=== PATIENT | female | born 1945 | race Caucasian/White ===

== ENCOUNTER 2020-12-29 09:16 | Outpatient (REF) | payer MEDICARE, OTHER, SELFPAY ==
--- NOTE | 2020-12-29 15:54 | MHC.AU.ANR ---
Adult Audiological Evaluation Date of Visit: 12/29/20 Reason for Appointment: Audiological evaluation due to concern for decreased hearing. Ms. Kitchen reports difficulties hearing the TV and her cell phone and feels she doesn't hear as clearly as she used to. She notes that she frequently has eczema and itching in her ear canals. Does patient feel they have a hearing loss?: Yes If Yes, Which Ear?: Both Ears When Was Hearing Difficulty First Noticed?: Gradually, but worse over the past few months Has hearing been tested previously?: Yes Previous Hearing Test Results: [facility] [place], 05/20/2015- Moderate to severe high-frequency SNHL in the right ear, moderate high-frequency SNHL in the left ear. Hearing Handicap Inventory: HHIE SCORE: 12 Based on HHIE score, patient has: Mild to moderate perceived hearing handicap Medical History: Medical History: Cancer, High Blood Pressure, Mumps Medical History (Other): Hernia repair 1996, hysterectomy 1997 Medication List: Topical cream to treat eczema in ears. Otoscopy: Right Ear: Mostly occluding cerumen, unable to view TM Left Ear: Non-occluding cerumen, able to view TM. Tympanometry: Tympanometry performed due to: To determine if cerumen blockage is fully occluding canal(s) Right Ear: Hypercompliant Middle Ear System (Type Ad) Left Ear: Normal Middle Ear System (Type A) Hearing Evaluation: Transducer(s) Used: Circumaural Headphones Method: Conventional Audiometry Stimuli Used: Pure Tones Right Ear: Description of Hearing: Normal hearing from 250-1000 Hz, steeply sloping to a mild to profound sensorineural hearing loss from 4264-1579 Hz. Left Ear: Description of Hearing: Normal hearing from 250-1000 Hz, steeply sloping to a mild to severe sensorineural hearing loss from 4023-6874 Hz. Speech Recognition Threshold (SRT): Method Used: Monitored Live Voice Stimuli Used: Spondee Words Right Ear: 25 dBHL Left Ear: 15 dBHL Word Discrimination: Method: Recorded Lists Word Lists Used: NU-6 Right Ear: 96% at 65 dBHL Left Ear: 96% at 65 dBHL Recommendations: Audiological re-evaluation in one year. Trial with amplification is recommended. Patient does not feel they are ready for amplification at this time. Referral to Ear, Nose, and Throat is recommended due to asymmetric thresholds. Follow up with a physician or use of earwax removal drops to clear ears. Diagnosis: Primary Diagnosis: H90.3 Bilateral Sensorineural Hearing Loss Secondary Diagnosis: H61.23 Impacted Cerumen, Bilateral Services Performed: Services Performed: Comprehensive Audiological Evaluation (CPT 20850) Tympanometry (CPT 38505) Signature: Provider: Janie Connolly, CCC-A
== END 2020-12-29 09:17 | disposition home or self-care (01) ==
LOC: HO.SH 09:16
PROVIDERS: Visit Provider Internal Medicine
DX: H90.3 Sensorineural hearing loss, bilateral (principal); H61.23 Impacted cerumen, bilateral
CPT/HCPCS: 92557; 92567

== ENCOUNTER 2021-02-17 08:16 | Outpatient (REF) | payer MEDICARE, OTHER, SELFPAY ==
[2021-02-17 11:07] LABS: Hemoglobin 14.3 g/dl (12.0-16.0); Mean Corpuscular HGB Conc 31.8 g/dl (31.0-35.0); Mean Corpuscular Hemoglobin 29.9 pg (27.0-33.0); Mean Corpuscular Volume 94.1 fL (80-98); Platelet Count 326 X10*3/uL (160-400); Red Blood Count 4.78 X10*6/uL (4.20-5.50); Red Cell Distribution Width 13.9 % (11.0-16.0); White Blood Count 9.5 X10*3/uL (4.8-10.8)
[2021-02-17 11:14] LABS: Estimated Average Glucose 128 mg/dL; Hemoglobin A1c % 6.1 %
[2021-02-17 11:47] LABS: Alanine Aminotransferase 12 U/L (0-31); Albumin Level 4.1 g/dL (3.5-5.0); Alkaline Phosphatase 83 U/L (39-117); Anion Gap 14 (12-20); Aspartate Amino Transferase 17 U/L (5-31); Bilirubin Total 0.7 mg/dL (0.0-1.0); Blood Urea Nitrogen 16 mg/dL (9-16); Calcium 9.4 mg/dL (8.4-10.2); Carbon Dioxide 30 mmol/L (22-29); Chloride 104 mmol/L (96-108); Cholesterol 242 mg/dL; Estimated Glomerular Filt Rate 58; Glucose Fasting 114 mg/dL (60-99); HDL Cholesterol 45 mg/dL; Iron 73 mcg/dL (30-160); LDL Cholesterol Calculated 172 mg/dl; Percent Iron Saturation 23 % (15-50); Potassium 4.5 mmol/L (3.3-5.1); Sodium 143 mmol/L (135-145); Total Iron Binding Capacity 312 mcg/dL (228-428); Total Protein 7.2 g/dL (6.5-8.0); Triglycerides 126 mg/dL; Unsaturated Iron Binding 239 ug/dL
[2021-02-17 12:01] LABS: Ferritin 125 ng/mL (10-250)
== END 2021-02-17 08:17 | disposition home or self-care (01) ==
LOC: HO.MANLDS 08:16
PROVIDERS: PCP Internal Medicine; Visit Provider Physician Assistant
DX: I10 Essential (primary) hypertension (principal); R73.01 Impaired fasting glucose; E78.2 Mixed hyperlipidemia
CPT/HCPCS: 36415; 80053; 80061; 82728; 83036; 83540; 85027

== ENCOUNTER 2021-11-12 11:21 | Outpatient (REF) | payer MEDICARE, OTHER, SELFPAY ==
[2021-11-12 13:31] LABS: MANUAL DIFF FLAG NO
[2021-11-12 13:35] LABS: Basophils Percent Auto 0.3 % (0-2); Eosinophils Absolute Auto 0.1 X10*3/uL (0.0-0.4); Eosinophils Percent Auto 1.3 % (0-4); Hematocrit 43.8 % (37.0-47.0); Hemoglobin 13.9 g/dl (12.0-16.0); Imm Gran Abs Auto 0.04 X10*3/uL (0.00-0.03); Imm Gran Pct Auto 0.4 % (0.0-0.4); Lymphocytes Percent Auto 30.4 % (20-40); Mean Corpuscular HGB Conc 31.7 g/dl (31.0-35.0); Mean Corpuscular Volume 94.6 fL (80.0-98.0); Mean Platelet Volume 10.5 fL (9.4-12.3); Monocytes Absolute Auto 0.6 X10*3/uL (0.1-1.2); Monocytes Percent Auto 6.5 % (2-11); Neutrophils Percent Auto 61.1 % (45-73); Platelet Count 349 X10*3/uL (160-400); Red Blood Count 4.63 X10*6/uL (4.20-5.50); Red Cell Distribution Width 13.6 % (11.0-16.0); White Blood Count 9.8 X10*3/uL (4.8-10.8)
[2021-11-12 13:49] LABS: Alanine Aminotransferase 23 U/L (0-31); Albumin Level 4.2 g/dL (3.5-5.0); Alkaline Phosphatase 75 U/L (39-117); Anion Gap 10 (12-20); Aspartate Amino Transferase 23 U/L (5-31); Bilirubin Total 0.9 mg/dL (0.0-1.0); Blood Urea Nitrogen 16 mg/dL (9-16); Calcium 9.6 mg/dL (8.4-10.2); Carbon Dioxide 31 mmol/L (22-29); Chloride 104 mmol/L (96-108); Estimated Glomerular Filt Rate > 60; Glucose Random 110 mg/dL (60-115); Potassium 4.4 mmol/L (3.3-5.1); Sodium 141 mmol/L (135-145); Total Protein 7.3 g/dL (6.5-8.0)
[2021-11-12 13:53] LABS: Estimated Average Glucose 128 mg/dL; Hemoglobin A1c % 6.1 %
[2021-11-12 14:11] LABS: Thyroid Stimulating Hormone 1.79 uIU/mL (0.32-4.0); Vitamin D 25-OH Total 23.8 ng/mL (>30)
[2021-11-12 14:12] LABS: Erythrocyte Sedimentation Rate 23 MM/HR (0-20)
== END 2021-11-12 11:22 | disposition home or self-care (01) ==
LOC: HO.MANLDS 11:21
PROVIDERS: PCP Internal Medicine; Visit Provider Internal Medicine
DX: M85.80 Other specified disorders of bone density and structure, unspecified site (principal); R73.01 Impaired fasting glucose; R03.0 Elevated blood-pressure reading, without diagnosis of hypertension
CPT/HCPCS: 36415; 80053; 82306; 83036; 84443; 85025; 85652

== ENCOUNTER → 2022-07-01 09:14 | Outpatient (REF) | payer MEDICARE, OTHER, SELFPAY ==
--- NOTE | 2022-07-01 09:20 | CA_ITS ---
Transthoracic Echocardiogram Patient (Last, First, Middle): Ayesha Kitchen L Gender: Female Date of : 1945 Age: 77 Procedure Date: 07/01/2022 Procedure Type: Transthoracic Echocardiogram Location: OP Height: 154.94 cm Weight: 102.06 kg BSA: 1.99 m2 Heart Rate: 68 bpm BP: 148 / 72 mmHg Professor Of Criminal Justice: SB Referring MD: Jeremías Upton MD Symptoms: DYSPNEA ON EXERTION Study Quality: Adequate w contrast ECG Rhythm: Sinus Conclusions: - Normal left ventricular size and systolic function. There is mildly increased left ventricular wall thickness. The visually estimated ejection fraction is between 60-65%. - Elevated filling pressures. - There is severe septal asymmetric hypertrophy. - Normal right ventricular cavity size. There is borderline right ventricular systolic function. - There is mild dilatation of the ascending aorta measuring 3.70 cm. Findings Procedure Information Contrast agent, definity, is being given per protocol without apparent complications. Left Ventricle Normal left ventricular size and systolic function. There is mildly increased left ventricular wall thickness. The visually estimated ejection fraction is between 60-65%. There is no evidence of regional wall motion abnormalities. Abnormal diastolic function is noted. Spectral Doppler is indicative of an impaired relaxation filling pattern. Elevated filling pressures. There is severe septal asymmetric hypertrophy. Right Ventricle Normal right ventricular cavity size. There is borderline right ventricular systolic function. Atria The left atrium is normal in size. Aortic Valve Normal aortic valve structure and function. There is no aortic valve stenosis. There is no aortic valve regurgitation. Mitral Valve Normal mitral valve structure and function. There is no mitral valve regurgitation. There is no mitral valve stenosis. Pulmonic Valve The pulmonic valve is likely normal. Tricuspid Valve Normal tricuspid valve structure and function. There is no tricuspid valve regurgitation. Normal right atrial pressure. There is no evidence of pulmonary hypertension. Great Vessels There is mild dilatation of the ascending aorta measuring 3.70 cm. The visualized portions of the pulmonary artery and branches are normal. Venous The inferior vena cava is normal in size and collapses greater than 50% with inspiration. Pericardium/Pleural Prominent epicardial adipose tissue noted. There is no evidence of pericardial effusion. Prior Study Comparison Changes noted compared to prior study. Mild dilation of ascending aorta, severe septal hypertrophy, elevated filling pressures. Measurements 2D Linear Measurements IVSd: 1.80 0.6-0.9/0.6-1.0 cm LVIDd: 3.47 3.9-5.3/4.2-5.9 cm LVIDd Index: 1.74 2.4-3.2/2.2-3.1 cm/m2 LVIDs: 2.50 2.0-3.6 cm LVPWd: 0.91 0.7-1.1 cm LA Diam: 3.60 2.7-3.8/3.0-4.0 cm LAIDs Index: 1.81 1.5-2.3 cm/m2 LV Mass: 202.26 67-162/88-224 g LV Mass Index: 101.64 43-95/49-115 g/m2 LVOT Diam: 2.10 3.0+(-)1.3 cm 2D Systolic Function EF 4C: 67.40 >55% EF 2C: 79.10 >55% EF BiP: 72.90 >55% Mitral Valve MV Pk E: 0.60 MV PK A: 0.82 MV Decel Time: 167.00 E/A: 0.70 E'Lateral: 5.22 E'Medial: 2.94 E/E' Med: 20.50 E/E' Lat: 11.60 PHT: 49.00 MVA PHT: 4.49 Decel [place]: 3.62 Aortic Valve AoV Pk Js: 1.22 AoV Pk Grad: 6.00 PAMELA: 2.80 LVOT LVOT Pk Js: 0.99 LVOT Mn Js: 0.74 LVOT VTI: 0.22 LVOT Pk Grad: 4.00 LVOT Mn Grad: 2.00 LVOT Diam: 2.10 LVOT Area: 3.46 Diastolic Function MV Pk E: 0.60 MV Pk A: 0.82 E/A: 0.70 E'Medial: 2.94 E/E' Med: 20.50 E' Laterial: 5.22 E/E' Lat: 11.60 Right Ventricle TAPSE (mm): 15.20 TVS' Js: 9.60 Tricuspid Valve TR Pk Js: 1.95 TR Pk Grad: 15.00 RA Press: 8.00 RVSP: 23.00 Great Vessels Aorta Sinus of Valsalva: 3.20 2.0-3.5 cm Ao Asc: 3.70 2.1-3.4 cm Pulmonary Valve PV Pk Js: 1.20 Peak PV Grad: 6.00 Updated in Other Vendor System with Status of Final Chad Merritt MD electronically signed on 07/03/2022 2:36:30 PM with status of Final
== END ==
LOC: HO.CARD 09:14
PROVIDERS: PCP Internal Medicine; Visit Provider Internal Medicine
DX: R06.09 Other forms of dyspnea (principal)
CPT/HCPCS: 93306; Q9957

== ENCOUNTER → 2022-07-08 10:42 | Outpatient (BNVA) | payer MEDICARE, OTHER, SELFPAY | PROVIDERS: PCP Internal Medicine; Visit Provider Student in an Organized Health Care Education/Training Program | DX: R68.2 Dry mouth, unspecified (principal); R42 Dizziness and giddiness | CPT/HCPCS: 99202 ==

== ENCOUNTER 2022-08-29 10:13 | Outpatient (REF) | payer MEDICARE, OTHER, SELFPAY ==
--- NOTE | ~2022-08-29 | US_ITS ---
EXAMINATION: US EXTRACRANIAL CAROTID DUPLEX, BILATERAL CLINICAL INFORMATION: Dizziness and giddiness COMPARISON: None TECHNIQUE: Real-time ultrasound and Doppler techniques (integrating B-mode 2-D vascular images, Doppler spectral analysis and color-flow Doppler imaging) were utilized to interrogate the extracranial carotid arteries, the vertebral arteries and proximal subclavian arteries bilaterally. The degree of stenosis is determined by criteria similar to NASCET. FINDINGS: Right Side: 1. There is minimal atherosclerotic plaque seen in the bifurcation/proximal ICA region. 2. The common carotid artery PSV proximally is 67.6 cm/s and distally 70.7 cm/s. 3. The proximal internal carotid artery velocities are 56.8 cm/s systolic and 20.4 cm/s diastolic. 4. The proximal external carotid artery PSV is 108 cm/s. 5. The vertebral artery shows antegrade flow. 6. The subclavian artery waveforms are normal. Left Side: 1. There is minimal atherosclerotic plaque seen in the bifurcation/proximal ICA region. 2. The common carotid artery PSV proximally is 81.6 cm/s and distally 76.7 cm/s. 3. The proximal internal carotid artery velocities are 45.1 cm/s systolic and 14.1 cm/s diastolic. 4. The proximal external carotid artery PSV is 91.4 cm/s. 5. The vertebral artery shows antegrade flow. 6. The subclavian artery waveforms are normal. US/US carotid duplex BI IMPRESSION: 1. RIGHT: Minimal, non-hemodynamically significant stenosis of the proximal right internal carotid artery corresponding to a 0-49% stenosis by velocity criteria. 2. LEFT: Minimal, non-hemodynamically significant stenosis of the proximal left internal carotid artery corresponding to a 0-49% stenosis by velocity criteria.
== END 2022-08-29 10:14 | disposition home or self-care (01) ==
LOC: HO.US 10:13
PROVIDERS: Visit Provider Student in an Organized Health Care Education/Training Program
DX: R42 Dizziness and giddiness (principal)
CPT/HCPCS: 93880

== ENCOUNTER → 2022-09-21 14:43 | Outpatient (BNVA) | payer MEDICARE, OTHER, SELFPAY | PROVIDERS: PCP Internal Medicine; Visit Provider Internal Medicine Cardiovascular Disease | DX: R06.09 Other forms of dyspnea (principal); R07.9 Chest pain, unspecified; E78.5 Hyperlipidemia, unspecified | CPT/HCPCS: 93005; 99202 ==

== ENCOUNTER → 2022-09-29 08:33 | Outpatient (REF) | payer MEDICARE, OTHER, SELFPAY ==
--- NOTE | ~2022-09-29 | NM_ITS ---
Myocardial perfusion study Indication: Chest pain to evaluate for myocardial ischemia Technique: The patient was brought in for a Lexiscan perfusion study on 09/29/2022. Patient performed low-level exercise and was injected 0.4 mg of Lexiscan intravenously. Within a minute of injection, 30 mCi of sestamibi was given intravenously. Images were obtained using the SPECT gamma camera interlaced with the gating device. Images were obtained in supine position. Resting perfusion study was performed on 09/30/2022. Patient was administered 30 mCi of sestamibi intravenously at rest. Images were then obtained in supine position. Images were obtained with and without CT attenuation. Total DLP 187 mGy-cm. Images were processed with the software and compared side to side in short axis, horizontal long axis and vertical long axis views. Findings: The stress perfusion study showed non attenuated images show moderate reduced uptake in the distal inferolateral as well as the apical wall of the LV myocardium. Remainder of the LV myocardium is normally perfused. Attenuation corrected images show mildly reduced uptake in the apex of the LV myocardium. The gated study shows normal LV systolic function with calculated LVEF of 72%. LV cavity is normal in size. The gated study shows normal systolic wall thickening and contraction of segments. Resting study shows no change in perfusion pattern compared to stress perfusion study. Gating at rest reveals normal systolic wall motion with ejection fraction at 73%. The findings are consistent with no reversible defect suggestive of ischemia. Fixed apical defect could represent small area of nontransmural infarct of the apex although attenuation related artifact is also likely given normal wall motion. NM/NM schuyler perf SPECT rest & str Impression: 1. Myocardial perfusion imaging study shows no reversible ischemia. Possible small area of nontransmural infarct of the apex cannot be entirely ruled out 2. Gated LVEF is 72% 3. Transient ischemic dilatation not present EKG is nondiagnostic for ischemia
--- NOTE | 2022-09-29 08:38 | CA_ITS ---
Acquisition Time: 2022-09-29 09:19:47 Total Exercise Time: 00:02:00 Test Indications: Dyspnea CP Medications: LOSARTAN PRAVASTATIN TOPIRAMATE Protocol: LEXISCAN Max HR: 102 BPM 70% of Pred: 145 BPM Max BP: 142/080 mmHG Max Work Load: 1.1 METS Pharmacological stress test with Lexiscan injection, while sitting and kicking her legs, without anginal symptoms, without arrythnmia, with normotensive response to injection, with nondiagnostic EKG for ischemia. In recovery she was treated with aminophylline 75mg IVP to reverse Lexiscan. Nuclear images pending. Test reviewed with Dr Ontiveros. Referred By: Chad Merritt Overread By: TEVIN POWELL
[2022-09-29 09:04] LABS: MANUAL DIFF FLAG NO
[2022-09-29 09:14] LABS: Basophils Percent Auto 0.4 % (0-2); Eosinophils Absolute Auto 0.2 X10*3/uL (0.0-0.4); Eosinophils Percent Auto 1.5 % (0-4); Imm Gran Abs Auto 0.07 X10*3/uL (0.00-0.03); Imm Gran Pct Auto 0.7 % (0.0-0.4); Lymphocytes Absolute Auto 2.7 X10*3/uL (1.2-4.9); Lymphocytes Percent Auto 27.5 % (20-40); Mean Corpuscular HGB Conc 31.8 g/dl (31.0-35.0); Mean Corpuscular Hemoglobin 29.7 pg (27.0-33.0); Mean Corpuscular Volume 93.4 fL (80.0-98.0); Mean Platelet Volume 10.2 fL (9.4-12.3); Monocytes Absolute Auto 0.6 X10*3/uL (0.1-1.2); Monocytes Percent Auto 6.1 % (2-11); Neutrophils Absolute Auto 6.3 x10*3/uL (2.0-8.3); Neutrophils Percent Auto 63.8 % (45-73); Platelet Count 332 X10*3/uL (160-400); Red Blood Count 4.71 X10*6/uL (4.20-5.50); Red Cell Distribution Width 13.6 % (11.0-16.0); White Blood Count 9.9 X10*3/uL (4.8-10.8)
[2022-09-29 09:24] LABS: Estimated Average Glucose 131 mg/dL; Hemoglobin A1c % 6.2 %
[2022-09-29 09:53] LABS: Alanine Aminotransferase 18 U/L (0-31); Albumin Level 4.1 g/dL (3.5-5.0); Alkaline Phosphatase 70 U/L (39-117); Anion Gap 11 (12-20); Aspartate Amino Transferase 20 U/L (5-31); Blood Urea Nitrogen 17 mg/dL (9-16); Calcium 9.3 mg/dL (8.4-10.2); Carbon Dioxide 28 mmol/L (22-29); Chloride 105 mmol/L (96-108); Cholesterol 222 mg/dL; Estimated Glomerular Filt Rate 59; Glucose Random 119 mg/dL (60-115); HDL Cholesterol 44 mg/dL; LDL Cholesterol Calculated 152 mg/dl; Potassium 3.9 mmol/L (3.3-5.1); Sodium 140 mmol/L (135-145); Total Protein 7.1 g/dL (6.5-8.0); Triglycerides 130 mg/dL
[2022-09-29 10:13] LABS: Cholesterol 217 mg/dL; HDL Cholesterol 43 mg/dL; LDL Cholesterol Calculated 149 mg/dl; Rheumatoid Factor < 13.0 IU/mL (<15.0); TSH reflex Free T4 1.96 uIU/mL (0.32-4.0); Triglycerides 128 mg/dL
[2022-09-29 10:15] LABS: Erythrocyte Sedimentation Rate 14 MM/HR (0-20)
[2022-09-29 11:06] LABS: Appearance Urine Cloudy; Color Urine Yellow; Glucose Urine UA Negative (Negative); Leukocyte Esterase Urine Large (3+) (Negative); Nitrite Urine Negative (Negative); PH 5.5 (5.0-9.0); UMIC TRIGGER UA YES; Urine Blood Negative (Negative); Urine Ketones Negative (Negative); Urine Protein Trace mg/dL (Neg-Trace)
[2022-09-29 11:09] LABS: Bacteria Urine 2+ (None Seen); Hyaline Casts Urine 0-2 /LPF (0-2); Squamous Epithelial Cell Urine >20 /HPF (0-2); WBC Urine >50 /HPF (0-5)
[2022-09-29 11:48] LABS: Creatinine Urine 200.94 mg/dL; Protein/Creatinine Ratio, Ur 0.11 (<0.2); Total Protein Urine Random 22 mg/dL (<12)
[2022-09-30 17:08] LABS: Complement C3 174 mg/dL (83-193)
[2022-09-30 19:37] LABS: Anti DNA DS Antibody <1 IU/mL; Antibody to SS-A Antigen <1.0 NEG AI (<1.0 NEG); Antibody to SS-B Antigen 1.0 POS AI (<1.0 NEG); SM/Ribonucleoprotein Ab <1.0 NEG AI (<1.0 NEG); Smith Protein <1.0 NEG AI (<1.0 NEG)
[2022-09-30 21:04] LABS: Prot Elec - Albumin 3.9 g/dL (3.8-4.8); Prot Elec - Alpha1 0.3 g/dL (0.2-0.3); Prot Elec - Alpha2 0.8 g/dL (0.5-0.9); Prot Elec - Beta 1 0.5 g/dL (0.4-0.6); Prot Elec - Beta 2 0.5 g/dL (0.2-0.5); Prot Elec - Total Protein 6.9 g/dL (6.1-8.1)
[2022-10-02 14:04] LABS: Anti Nuclear Antibody Screen NEGATIVE (NEGATIVE)
[2022-10-02 23:05] LABS: Cyclic Citrullinated Peptide <16 UNITS
[2022-10-03 14:28] LABS: Immunoglobulin G Subclass 1 493 mg/dL (382-929); Immunoglobulin G Subclass 2 376 mg/dL (241-700); Immunoglobulin G Subclass 3 27 mg/dL (22-178); Immunoglobulin G Subclass 4 116.7 mg/dL (4-86); Immunoglobulin G Total 1037 mg/dL (600-1540)
[2022-10-04 14:17] LABS: HLA B27 Negative (Negative)
[2022-10-04 18:07] LABS: IgA 398 mg/dL (70-320); IgG 1214 mg/dL (600-1540); IgM 66 mg/dL (50-300)
[2022-10-05 14:28] LABS: Angiotensin Converting Enzyme 29.9 U/L (9-67)
== END ==
LOC: HO.CARD 08:33
PROVIDERS: Absent Provider Student in an Organized Health Care Education/Training Program; PCP Internal Medicine; Visit Provider Internal Medicine Cardiovascular Disease
DX: R07.9 Chest pain, unspecified (principal); E78.5 Hyperlipidemia, unspecified; R76.8 Other specified abnormal immunological findings in serum; E66.9 Obesity, unspecified; S86.012A Strain of left Achilles tendon, initial encounter; M76.60 Achilles tendinitis, unspecified leg; X58.XXXA Exposure to other specified factors, initial encounter; Y93.9 Activity, unspecified; Y92.9 Unspecified place or not applicable; Y99.9 Unspecified external cause status
CPT/HCPCS: 36415; 78452; 80053; 80061; 81001; 82164; 82595; 82784; 83036; 84156; 84165; 84443; 85025; 85652; 86038; 86039; 86140; 86160; 86200; 86225; 86235; 86334; 86431; 86812; 93017; A9500; J0280; J2785

== ENCOUNTER → 2022-10-19 10:10 | Outpatient (BNVA) | payer MEDICARE, OTHER, SELFPAY | PROVIDERS: PCP Internal Medicine; Referring Provider Internal Medicine; Visit Provider Internal Medicine Cardiovascular Disease | DX: R06.09 Other forms of dyspnea (principal); I10 Essential (primary) hypertension; E78.5 Hyperlipidemia, unspecified | CPT/HCPCS: 99212 ==

== ENCOUNTER → 2022-10-28 09:16 | Outpatient (BNVA) | payer MEDICARE, OTHER, SELFPAY | PROVIDERS: PCP Internal Medicine; Referring Provider Internal Medicine; Visit Provider Internal Medicine Cardiovascular Disease | DX: Z13.89 Encounter for screening for other disorder (principal) ==

== ENCOUNTER → 2022-12-05 12:39 | Outpatient (BNVA) | payer MEDICARE, OTHER, SELFPAY | PROVIDERS: PCP Internal Medicine; Referring Provider Internal Medicine; Visit Provider Internal Medicine Cardiovascular Disease | DX: I10 Essential (primary) hypertension (principal) | CPT/HCPCS: 99212 ==

== ENCOUNTER 2022-12-12 08:39 | Outpatient (REF) | payer MEDICARE, OTHER, SELFPAY ==
[2022-12-12 09:02] LABS: MANUAL DIFF FLAG NO
[2022-12-12 09:58] LABS: Basophils Percent Auto 0.4 % (0-2); Eosinophils Absolute Auto 0.2 X10*3/uL (0.0-0.4); Eosinophils Percent Auto 1.4 % (0-4); Hemoglobin 13.6 g/dl (12.0-16.0); Imm Gran Abs Auto 0.05 X10*3/uL (0.00-0.03); Imm Gran Pct Auto 0.5 % (0.0-0.4); Lymphocytes Absolute Auto 2.9 X10*3/uL (1.2-4.9); Lymphocytes Percent Auto 27.7 % (20-40); Mean Corpuscular HGB Conc 32.4 g/dl (31.0-35.0); Mean Corpuscular Hemoglobin 30.2 pg (27.0-33.0); Mean Corpuscular Volume 93.1 fL (80.0-98.0); Mean Platelet Volume 10.3 fL (9.4-12.3); Monocytes Absolute Auto 0.7 X10*3/uL (0.1-1.2); Monocytes Percent Auto 6.8 % (2-11); Neutrophils Absolute Auto 6.7 x10*3/uL (2.0-8.3); Neutrophils Percent Auto 63.2 % (45-73); Platelet Count 308 X10*3/uL (160-400); Red Blood Count 4.51 X10*6/uL (4.20-5.50); Red Cell Distribution Width 13.6 % (11.0-16.0); White Blood Count 10.6 X10*3/uL (4.8-10.8)
[2022-12-12 10:24] LABS: Alanine Aminotransferase 18 U/L (0-31); Albumin Level 3.9 g/dL (3.5-5.0); Alkaline Phosphatase 77 U/L (39-117); Anion Gap 13 (12-20); Aspartate Amino Transferase 16 U/L (5-31); Bilirubin Total 0.6 mg/dL (0.0-1.0); Blood Urea Nitrogen 21 mg/dL (9-16); Carbon Dioxide 27 mmol/L (22-29); Chloride 107 mmol/L (96-108); Cholesterol 165 mg/dL; Estimated Glomerular Filt Rate 57; Glucose Random 124 mg/dL (60-115); HDL Cholesterol 47 mg/dL; LDL Cholesterol Calculated 103 mg/dl; Potassium 4.5 mmol/L (3.3-5.1); Sodium 142 mmol/L (135-145); Total Protein 6.7 g/dL (6.5-8.0); Triglycerides 76 mg/dL
== END 2022-12-12 08:40 | disposition home or self-care (01) ==
LOC: HO.LAB 08:39
PROVIDERS: PCP Internal Medicine; Visit Provider Internal Medicine
DX: Z00.01 Encounter for general adult medical examination with abnormal findings (principal); Z12.11 Encounter for screening for malignant neoplasm of colon; Z13.6 Encounter for screening for cardiovascular disorders; D50.9 Iron deficiency anemia, unspecified
CPT/HCPCS: 36415; 80053; 80061; 85025

== ENCOUNTER → 2023-02-02 13:04 | Outpatient (BNVA) | payer MEDICARE, OTHER, SELFPAY | PROVIDERS: PCP Internal Medicine; Referring Provider Internal Medicine; Visit Provider Nurse Practitioner Family | DX: I10 Essential (primary) hypertension (principal); E78.5 Hyperlipidemia, unspecified; R06.09 Other forms of dyspnea; Z79.899 Other long term (current) drug therapy | CPT/HCPCS: 99212 ==

== ENCOUNTER 2023-08-09 13:57 | Outpatient (AMB) | payer MEDICARE, OTHER, SELFPAY ==
--- NOTE | 2023-08-09 14:07 | A.OFFVIS_ITS ---
Intake Vital Signs 08/09/23 14:08 Height 5 ft 2 in Weight 220 lb 7.396 oz BMI 40.3 BP 120/80 Blood Pressure Location Lt brachial Position Sitting Pulse 88 Intake Visit Reasons: 6 mth fu (KM) Intake Note: 6 month follow-up with ekg c/o pressure on center of chest Assembly Associate Required: No Allergies pregabalin Allergy (Unknown, Verified 02/02/23 13:07) Unknown Cawqcab-VHI-AgN Reductase Inhibitor [ZSFQDVF-OSE-RSQ REDUCTASE INHIBITOR] Allergy (Unknown, Verified 02/02/23 13:07) ANXIETY, ABD PAIN From PROZAC Allergy (Unknown, Uncoded 02/02/23 13:07) HAD ALL THE SIDE EFFECTS Medication List - Last Reconciled 08/09/23 by Yee Lazaro NP aspirin (Adult Aspirin Regimen) 81 mg PO DAILY atorvastatin 40 mg PO BEDTIME losartan 50 mg PO DAILY metronidazole 0.75% 1 appl topical BID HPI HPI Comments History of Present Illness Details 78-year-old female presents for a follow -up. She reports doing overall well. She reported a bubble feeling in her chest when she arrived which resolved. She denies shortness of breath. She walks about a half mile every day and tolerates it well. [facility] Medical History Dyslipidemia Hypertension Other abnormalities of gait and mobility Sensorineural hearing loss (SNHL), bilateral Xerostomia Surgical History Hx of colonoscopy H/O Achilles tendon repair H/O local excision of skin lesion Hx of hysterectomy History of surgery Hx of hernia repair Hx of cataract extraction Family History Sister Cancer Stroke Diabetes Father Heart disease Hypertension Stroke Brother Heart disease Mother Heart disease Stroke Social History Household Members: None Alcohol intake: current Alcohol intake frequency: holidays/special occasions only Patient Tobacco Use Status: Never used Tobacco Current occupational status: retired 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 [employer] Review of Systems Const Denies chills, Denies fatigue, Denies fever(s), Denies frequent falls, Denies weakness, Denies weight gain and Denies weight loss ENT Denies dizziness Card Denies chest pain, Denies leg edema, Denies lightheadedness, Denies palpitations, Denies dyspnea, Denies dyspnea on exertion, Denies orthopnea and Denies other (loss of consciousness) Resp Denies cough, Denies dyspnea and Denies dyspnea on exertion GI Denies hematochezia and Denies change in stool character Musc Denies abnormal gait, Denies muscle weakness, Denies numbness, Denies radiating pain into limb and Denies tingling Neuro Denies abnormal gait, Denies dizziness, Denies frequent falls, Denies numbness, Denies tingling and Denies weakness Endo Denies fatigue and Denies palpitations Physical Exam Vital Signs: Last Vital Signs Pulse 88 08/09/23 14:08 BP 120/80 08/09/23 14:08 BMI result Body Mass Index 40.3 Const General: healthy appearing and no acute distress Orientation/consciousness: patient oriented x3 HEENT Head: Yes normal to inspection Eyes General: appearance normal, both eyes and all related structures Neck Neck: Yes normal visual inspection Chest Chest palpation & inspection: normal inspection of the chest Resp Effort & Inspection: normal respiratory effort Auscultation: clear to auscultation bilaterally Cardio Jugular venous distension: no JVD Palpation: normal PMI Rate: regular rate Rhythm: regular rhythm Heart sounds: S1 normal heart sound present, S2 normal heart sound present, no click, no gallops, no murmurs and no rubs GI Inspection: Yes normal to inspection Palpation (GI): Soft to palpation Skin General skin exam: no rashes or lesions noted Neuro General: patient oriented x3 Extrem General: Yes normal to inspection Psych Appearance: grossly normal Office Procedures EKG Details: EKG today. Sinus Rhythm with 1st degree AV block. QTC 455ms. No significant changes from last EKG. [id number], Complete Assessment & Plan Assessment & Plan (1) Essential hypertension: Code(s): I10 - Essential (primary) hypertension (2) Chest pain: Code(s): R07.9 - Chest pain, unspecified Plan Report any new or worsening symptoms. EKG today with no significant changes. Continue medications as currently prescribed. Increase activity as tolerated. Heart healthy diet and weight reduction advised. Coding Level of Care Code Est Pt Level 3 (43325) Diagnoses Essential hypertension I10 Chest pain R07.9 CPT Codes EKG - CPT: 44530-[id number], Complete ([id number])
[2023-08-09 14:08] VITALS: BP 120/80; PULSE 88; BMI 40.3
== END 2023-08-09 15:11 | disposition home or self-care (01) ==
PROVIDERS: PCP Internal Medicine; Visit Provider Nurse Practitioner
DX: I10 Essential (primary) hypertension (principal); R07.9 Chest pain, unspecified
CPT/HCPCS: 93010; 99213

== ENCOUNTER → 2023-08-09 13:57 | Outpatient (BNVA) | payer MEDICARE, OTHER, SELFPAY | PROVIDERS: PCP Internal Medicine; Visit Provider Nurse Practitioner | DX: R07.9 Chest pain, unspecified (principal); I10 Essential (primary) hypertension | CPT/HCPCS: 93005; 99212 ==

== ENCOUNTER 2024-01-26 10:55 | Outpatient (REF) | payer MEDICARE, OTHER, SELFPAY ==
[2024-01-26 13:23] LABS: MANUAL DIFF FLAG NO
[2024-01-26 13:34] LABS: Basophils Percent Auto 0.3 % (0-2); Eosinophils Absolute Auto 0.2 X10*3/uL (0.0-0.4); Eosinophils Percent Auto 1.4 % (0-4); Hematocrit 42.7 % (37.0-47.0); Hemoglobin 13.8 g/dl (12.0-16.0); Imm Gran Abs Auto 0.06 X10*3/uL (0.00-0.03); Imm Gran Pct Auto 0.5 % (0.0-0.4); Lymphocytes Absolute Auto 3.3 X10*3/uL (1.2-4.9); Lymphocytes Percent Auto 28.6 % (20-40); Mean Corpuscular HGB Conc 32.3 g/dl (31.0-35.0); Mean Corpuscular Hemoglobin 30.3 pg (27.0-33.0); Mean Corpuscular Volume 93.6 fL (80.0-98.0); Mean Platelet Volume 10.8 fL (9.4-12.3); Monocytes Absolute Auto 0.8 X10*3/uL (0.1-1.2); Monocytes Percent Auto 7.1 % (2-11); Neutrophils Absolute Auto 7.2 x10*3/uL (2.0-8.3); Neutrophils Percent Auto 62.1 % (45-73); Platelet Count 301 X10*3/uL (160-400); Red Blood Count 4.56 X10*6/uL (4.20-5.50); Red Cell Distribution Width 14.1 % (11.0-16.0); White Blood Count 11.6 X10*3/uL (4.8-10.8)
[2024-01-26 13:44] LABS: Estimated Average Glucose 146 mg/dL; Hemoglobin A1c % 6.7 % (<6.0)
[2024-01-26 14:17] LABS: Alanine Aminotransferase 21 U/L (0-31); Albumin Level 4.1 g/dL (3.5-5.0); Alkaline Phosphatase 68 U/L (39-117); Anion Gap 15 (12-20); Aspartate Amino Transferase 21 U/L (5-31); Bilirubin Total 0.9 mg/dL (0.0-1.0); Blood Urea Nitrogen 17 mg/dL (9-16); Calcium 9.4 mg/dL (8.4-10.2); Carbon Dioxide 28 mmol/L (22-29); Chloride 105 mmol/L (96-108); Estimated Glomerular Filt Rate 59; Glucose Random 105 mg/dL (60-115); Potassium 4.1 mmol/L (3.3-5.1); Sodium 144 mmol/L (135-145); Total Protein 7.6 g/dL (6.5-8.0)
[2024-01-26 14:25] LABS: Vitamin B12 606 pg/mL (200-900)
[2024-02-06 20:39] LABS: Estrogen 53 pg/mL
== END 2024-01-26 10:56 | disposition home or self-care (01) ==
LOC: HO.MANLDS 10:55
PROVIDERS: Visit Provider Internal Medicine
DX: E55.9 Vitamin D deficiency, unspecified (principal); R06.09 Other forms of dyspnea; R73.01 Impaired fasting glucose; R53.83 Other fatigue
CPT/HCPCS: 36415; 80053; 82306; 82607; 82672; 83036; 85025

== ENCOUNTER 2024-02-19 09:54 | Outpatient (AMB) | payer MEDICARE, OTHER, SELFPAY ==
[2024-02-19 09:57] VITALS: BP 150/70; PULSE 82; O2SAT 97; BMI 40.0
--- NOTE | 2024-02-19 09:57 | A.OFFVIS_ITS ---
Vital Signs 02/19/24 09:57 Height 5 ft 2 in Weight 218 lb 11.177 oz BMI 40.0 BP 150/70 H Blood Pressure Location Lt brachial Position Sitting Pulse 82 Pulse Source Pulse Oximeter Pulse Oximetry (%) 97 Intake Visit Reasons: 6 mth fu Superintendent Warehouse Required: No Accompanied by: Self / Same As Patient Allergies pregabalin Allergy (Unknown, Verified 02/02/23 13:07) Unknown Dxflrrk-MYD-MyB Reductase Inhibitor [CRBYTQF-KNM-QBV REDUCTASE INHIBITOR] Allergy (Unknown, Verified 02/02/23 13:07) ANXIETY, ABD PAIN From PROZAC Allergy (Unknown, Uncoded 02/02/23 13:07) HAD ALL THE SIDE EFFECTS Medication List - Last Reconciled 02/19/24 by Chad Merritt MD aspirin (Adult Aspirin Regimen) 81 mg PO DAILY atorvastatin 40 mg PO BEDTIME losartan 50 mg PO DAILY metronidazole 0.75% 1 appl topical BID HPI Comments Details: 77-year-old female who is referred to us for chest discomfort. She has background of xerostomia and has been following with rheumatology. It appears she is sent to us for question dysautonomia but discussed with that she does not have any obvious symptoms of dysautonomia at this stage. She is saying that she gets chest discomfort when she exerts and has family history of coronary disease and wanted to have further workup for that. She is denying any significant shortness of breath. She does not have any known lung disease. She has ba ckground of hypertension and hyperlipidemia. She was referred for stress tests where she could not exercise and Lexiscan was performed. This showed apical fixed defect with differentials of infarct versus attenuation artifact. On follow-up she is denying chest discomfort but saying that she is short of breath when she exercises. Blood pressure continues to be elevated. She is currently on losartan 50 mg daily. She also has soft stools happening every hour for 3 weeks. She has not lost weight. She is denying any abdominal discomfort otherwise. No bleeding in stool or urine. She is saying that she has not been able to exercise due to left ankle issues. 02/19/24: She is here for f/u. She has no CP. She has AVITIA. Her blood pressure is elevated. She is endorsing a lot of stress at home.She is saying her 42-year-old son just moved in with her after losing his apartment. She is saying that things have been quite stressful for her at home and she has not been eating right. She is eating more processed foods. [facility] Medical History Dyslipidemia Hypertension Other abnormalities of gait and mobility Sensorineural hearing loss (SNHL), bilateral Xerostomia Surgical History Hx of colonoscopy H/O Achilles tendon repair H/O local excision of skin lesion Hx of hysterectomy History of surgery Hx of hernia repair Hx of cataract extraction Family History Sister Cancer Stroke Diabetes Father Heart disease Hypertension Stroke Brother Heart disease Mother Heart disease Stroke Social History Household Members: None Alcohol intake: current Alcohol intake frequency: holidays/special occasions only Patient Tobacco Use Status: Never used Tobacco Current occupational status: retired 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 [employer] Review of Systems Const Denies chills, Denies fatigue, Denies fever(s), Denies frequent falls, Denies weakness, Denies weight gain and Denies weight loss ENT Denies dizziness Card Denies chest pain, Denies leg edema, Denies lightheadedness, Denies palpitations, Denies dyspnea and Denies dyspnea on exertion Resp Denies cough, Denies dyspnea and Denies dyspnea on exertion GI Denies hematochezia Musc Denies abnormal gait, Denies muscle weakness, Denies numbness, Denies radiating pain into limb and Denies tingling Neuro Denies abnormal gait, Denies dizziness, Denies frequent falls, Denies numbness, Denies tingling and Denies weakness Endo Denies fatigue and Denies palpitations Physical Exam Vital Signs: Last Vital Signs Pulse 82 02/19/24 09:57 BP 150/70 H 02/19/24 09:57 Pulse Ox 97 02/19/24 09:57 BMI result Body Mass Index 40.0 GENERAL APPEARANCE: in no acute distress, pleasant. NECK: no carotid bruit, no jugular venous distention. SKIN: no suspicious lesions, warm and dry. HEART: no murmurs, regular rate and rhythm. LUNGS: clear to auscultation bilaterally. ABDOMEN: soft, nontender. EXTREMITIES: no edema. PERIPHERAL PULSES: equal. NEUROLOGIC: No gross deficits, AAO X 3 Assessment & Plan Assessment & Plan (1) Essential hypertension: Code(s): I10 - Essential (primary) hypertension Category: Medical (2) AVITIA (dyspnea on exertion): Code(s): R06.09 - Other forms of dyspnea Category: Medical Plan 78 female here for f/u. Her BP is elevated. Adding Chlorthalidone 25 mg daily. Low salt diet. If BP not improving then would maximize the Losartan to 100 mg daily. f/u in few months. Medications: New chlorthalidone 25 mg PO DAILY 60 tabs 3RF I10 - Essential (primary) hypertension Coding Level of Care Code Est Pt Level 4 (54714) Diagnoses Essential hypertension I10 AVITIA (dyspnea on exertion) R06.09
== END 2024-02-19 10:49 | disposition home or self-care (01) ==
PROVIDERS: PCP Internal Medicine; Visit Provider Internal Medicine Cardiovascular Disease
DX: I10 Essential (primary) hypertension (principal); R06.09 Other forms of dyspnea
CPT/HCPCS: 99214

== ENCOUNTER → 2024-02-19 09:54 | Outpatient (BNVA) | payer MEDICARE, OTHER, SELFPAY | PROVIDERS: PCP Internal Medicine; Visit Provider Internal Medicine Cardiovascular Disease | DX: R06.09 Other forms of dyspnea (principal); I10 Essential (primary) hypertension | CPT/HCPCS: 99212 ==

== ENCOUNTER 2024-11-19 08:23 | Outpatient (AMB) | payer MEDICARE, OTHER, SELFPAY ==
--- NOTE | 2024-11-19 08:25 | A.OFFVIS_ITS ---
Vital Signs 11/19/24 08:26 Height 5 ft 2 in Weight 228 lb 6.382 oz BMI 41.8 BP 178/80 H Blood Pressure Location Lt brachial Position Sitting Pulse 72 Pulse Source Monitor Intake Visit Reasons: SOB/Dizziness Sheet [employer] Required: No Allergies pregabalin Allergy (Unknown, Verified 11/19/24 08:28) Unknown Tcdxykl-WTX-YwE Reductase Inhibitor [[id number]-NGR-RRT REDUCTASE INHIBITOR] Allergy (Unknown, Verified 11/19/24 08:28) ANXIETY, ABD PAIN From PROZAC Allergy (Unknown, Uncoded 11/19/24 08:28) HAD ALL THE SIDE EFFECTS Medication List - Last Reconciled 11/19/24 by Azeb Franco NP-C aspirin (Adult Aspirin Regimen) 81 mg PO DAILY atorvastatin 40 mg PO BEDTIME chlorthalidone 25 mg PO DAILY losartan 50 mg PO DAILY metronidazole 0.75% 1 appl topical BID HPI HPI SOB/Dizziness: Details: Ayesha is a 79-year-old female with past medical history of hypertension, hyperlipidemia, morbid obesity, chest discomfort with abnormal nuclear stress test who presents for follow-up. Today she reports that she has been having some increasing daytime fatigue. She feels that she can nap at any time during the day. She says she has been under high stress as her adult son now lives with her. He is on disability and not working. She has some shortness of breath with activity which is not new. She describes having vertigo. She will get random pains in her chest region but describes problems with chronic pains in her back and chest. She does not get chest discomfort brought on by walking or stair climbing. No heart palpitations, presyncope, syncope, falls. Blood pressure has been running high. Taking meds as directed. [facility] Medical History Dyslipidemia Hypertension Other abnormalities of gait and mobility Sensorineural hearing loss (SNHL), bilateral Xerostomia Surgical History Hx of colonoscopy H/O Achilles tendon repair H/O local excision of skin lesion Hx of hysterectomy History of surgery Hx of hernia repair Hx of cataract extraction Family History Sister Cancer Stroke Diabetes Father Heart disease Hypertension Stroke Brother Heart disease Mother Heart disease Stroke Social History Household Members: None Alcohol intake: current Alcohol intake frequency: holidays/special occasions only Patient Tobacco Use Status: Never used Tobacco Current occupational status: retired 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 [employer] Review of Systems Const Details: daytime sleepiness All systems reviewed & are unremarkable except as noted in HPI and below Reports fatigue ENT Denies dizziness Card Reports chest pain (random), Denies chest pain at rest, Denies chest pain with activity, Denies rapid heart rate, Denies pedal edema, Denies edema, Denies leg edema, Denies lightheadedness, Denies palpitations, Denies dyspnea, Reports dyspnea on exertion and Denies orthopnea Resp Denies cough, Denies dyspnea and Reports dyspnea on exertion GI Denies hematochezia and Denies change in stool character Musc Denies abnormal gait, Denies limited range of motion, Denies muscle cramps, Denies muscle weakness, Denies numbness, Denies radiating pain into limb, Denies stiffness and Denies tingling Neuro Denies abnormal gait, Denies dizziness, Denies numbness and Denies tingling Endo Reports fatigue and Denies palpitations Physical Exam Vital Signs: Last Vital Signs Pulse 72 11/19/24 08:26 BP 178/80 H 11/19/24 08:26 BMI result Body Mass Index 41.8 Const Other: morbidly obese General: cooperative, healthy appearing, comfortable and no acute distress Orientation/consciousness: patient oriented x3 Neck Neck: Yes normal visual inspection and Yes no JVD Resp Effort & Inspection: normal respiratory effort Auscultation: clear to auscultation bilaterally, no rales, no rhonchi and no wheezes Cardio Rate: regular rate Rhythm: regular rhythm Heart sounds: S1 normal heart sound present, S2 normal heart sound present, no gallops, no murmurs and no rubs Neuro General: patient oriented x3 Extrem General: Yes normal to inspection, No no pedal edema and No calf tenderness Psych Appearance: grossly normal Mental Status: mental status grossly normal Speech and movement: Normal speech and movement present Office Procedures EKG Details: Today, read by me, SR, 1st degree avb, LAFB, rate 72, QTc 440ms [id number], Complete Assessment & Plan Assessment & Plan (1) Abnormal nuclear stress test: Code(s): R94.39 - Abnormal result of other cardiovascular function study Category: Medical Plan: Reports of atypical sounding chest discomfort. Echocardiogram 07/01/2022 showed EF 60-65%, severe septal asymmetric hypertrophy. Nuclear stress test 09/29/2022 shows a fixed apical defect, infarct versus artifact. EKG from today shows sinus rhythm with first-degree AV block, left anterior fascicular block, no significant change from prior, rate 72. She has no exertional symptoms. She has cardiac risk factors of hypertension, hyperlipidemia and morbid obesity. Cardiac risk factor modification reviewed with her. Discussed increasing her physical activity, weight loss, the need for good blood pressure control and cholesterol control. Blood pressure is elevated today. Losartan dose will be increased. Continue aspirin and atorvastatin. Signs and symptoms of angina reviewed. Cardiology follow-up 1 year, sooner if needed. (2) Essential hypertension: Code(s): I10 - Essential (primary) hypertension Category: Medical Plan: Elevated today, 178/80. She is on chlorthalidone and losartan 50 mg daily reports compliance. Discussed low-salt diet. Will increase losartan up to 100 mg daily. BMP in 1 week. (3) Hyperlipidemia: Code(s): E78.5 - Hyperlipidemia, unspecified Category: Medical Plan: LDL goal less than 100, ideally less than 70 in patient with suspected CAD. Labs done 12/12/2022 showed LDL 103. She has been on atorvastatin 40 mg daily. Will enter order for fasting lipid profile. (4) AVITIA (dyspnea on exertion): Code(s): R06.09 - Other forms of dyspnea Category: Medical Plan: Unchanged in the last year. May be related to deconditioning and morbid obesity. (5) Chest pain: Code(s): R07.9 - Chest pain, unspecified Category: Medical Plan: Atypical (6) Obesity: Code(s): E66.9 - Obesity, unspecified Category: Medical Plan: Benefits a weight loss reviewed (7) Hypersomnia: Code(s): G47.10 - Hypersomnia, unspecified Category: Medical Plan: Reports of not sleeping well at night and hypersomnia during the day. She is napping at times. Will order home sleep study to evaluate for sleep apnea. Untreated sleep apnea can contribute to uncontrolled hypertension. Plan Time spent on chart review, documentation, interview assessment Orders: Orders Comprehensive Met. Panel Today E78.5 - Hyperlipidemia, unspecified Lipid Panel Today E78.5 - Hyperlipidemia, unspecified RT home sleep study Today G47.10 - Hypersomnia, unspecified Medications: New losartan Dose increased 100 mg PO DAILY 90 tabs 1RF Refilled atorvastatin 40 mg PO BEDTIME 90 tabs 3RF E78.5 - Hyperlipidemia, unspecified Discontinued losartan Discontinued Reason: Doctor's Order 50 mg PO DAILY 90 tabs 3RF I10 - Essential (primary) hypertension Coding Level of Care Code Est Pt Level 4 (21345) Complex EM visit Add On G2211 Diagnoses Abnormal nuclear stress test R94.39 Essential hypertension I10 Hyperlipidemia E78.5 AVITIA (dyspnea on exertion) R06.09 Chest pain R07.9 Obesity E66.9 Hypersomnia G47.10 CPT Codes EKG - CPT: 27544-Cwcehragcefmwygnf, Complete ([id number]) Time Spent (min) 30
[2024-11-19 08:26] VITALS: BP 178/80; PULSE 72; BMI 41.8
--- OUTSIDE RECORDS SUMMARY | 2024-11-19 09:03 | XMS_ITS | Patient Health Record ---
Author Organization [facility] Address [address] [place] [address] Care Team Providers Care Documentation Analyst Name Role Phone Won RANDALL, Jeremías Primary Care Provider Jeremi Alfred Unavailable [phone] Allergies Allergen (clinical drug ingredient) Drug/Non Drug Allergy documented on EMR Reaction Allergy Type Onset Date Status rosuvastatin Crestor headache, shakes, dizzines Drug Allergy Active gabapentin Gabapentin felt like head would explode Drug Allergy Active fluoxetine Prozac headache, shakes, dizziness Drug Allergy Active Reason For Referral No Information Medications Medication SIG (Take, Route, Frequency, Duration) Notes Start Date End Date Status Augmentin 500-125 MG as directed Orally every 12 hrs for 10 days Not-Taking Physical Therapy . . . 2-3x/week for 3-4 weeks Not-Taking Physical Therapy . . . 2-3x/week for 3-4 weeks 11/07/2016 Not-Taking metroNIDAZOLE face cream Activ e Physical Therapy . . . 2-3x/week for 3-4 weeks 09/21/2016 Not-Taking Fluocinolone Oint & Emollient ear drops Active Zetia PRN for 30 days Not-Taking Multivitamin Active Clotrimazole-Betametha sone 1-0.05 % APPLY TO AFFECTED AREA EVERY 12 HOURS FOR 14 DAYS External for 14 Not-Taking Losartan Potassium 25 MG 1 tablet Orally Once a day for 30 day(s) Active Amitriptyline HCl 10 MG TAKE 1 TABLET AT BEDTIME NEEDED INCREASE BY 1 PER WEEK TO MAXIMUM OF 4 TABLETS AT BEDTIME Oral for 30 Not-Taking Physical Therapy . . . 2-3x/week for 3-4 weeks at home Active Amitiza Not-Taking Pravastatin Sodium 10 MG 1 tablet Orally Once a day for 30 day(s) Active Fluocinolone Acetonide 0.01 % PLACE 4 DROPS IN EAR(S) 2 TIMES DAILY. Otic for 13 Not-Taking Keflex 500 MG 1 capsule Orally every 12 hrs for 10 day(s) 09/01/2017 Not-Taking Amoxicillin Not-Taki ng Immunizations Vaccine Route Administration Date Status Comme nts COVID-19 Moderna Vaccine Unknown 12/10/2021 Administered 1st 11/05/20 2nd 12/03/20 3rd 05/2021 Social History Tobacco Use: Social History Observation Description Date Details (start date - stop date) Never Smoker NA - NA Tobacco Use/Smoking Question Answer Notes Are you a: nonsmoker Additional Findings: Tobacco Non-User Current no n-smoker Alcohol Screen Question Answer Notes Did you have a drink containing alcohol in the p ast year? No Points 0 Interpretation Negative Tobacco use other than smoking: Question Answer Notes Are you an other tobacco user? 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 confirmed Plan Of Treatment Pending Test Test Name Order Date X ray : Ankle, left 3V 02/12/2016 X ray : Foot, left 2V 08/28/2015 X ray : Foot, left 2V 01/23/2018 X ray : Foot, right 2V 08/28/2015 X ray : Foot, left 3V 05/30/2019 X ray : Foot, left 3V 10/16/2019 X ray : Foot, left 3V 10/02/2015 X ray : Foot, left 3V 01/22/2016 X ray : Foot, left 3V 10/14/2016 X ray : Foot, right 3V 09/21/2016 [id number] 08/28/2017 91214- Debride <25 sq cm 09/13/2017 95514- Debride <25 sq cm 10/26/2017 [id number] I&D ABSCESS- SIMPLE,SINGLE [id number], J0702- INJECT TENDON ORIGIN/INSER T 12/07/2016 Insurance Providers Payer Name Payer Address Payer Phone Subscriber Number Group Number Insured Name Patient Relationship to Insured Coverage Start Date Coverage End Date Medicare National [employer] [address] [place] [address] [id number] Ayesha Kitchen Self - patient is the insured 4 [employer] [address] [place] [address] [phone] [id number] Ayesha Kitchen Self - patient is the insured Medical (General) History Medical History History ICD Code Cholesterol Cataracts Chicken pox Surgical History Surgery Date(Month/Year) hysterectomy 1998 anterior & posterior repair 2014 cataract surgery 2012 umbilical hernia repair 1997 endoscopy 10/12/2015 colonoscopy 10/12/2015 L ankle surgery 04/11/2021 Hospitalization History Reason Date(Month/Year) [facility]- reconstructive surgery, cystocele r belkis [place] sling 10/[address] Vences 02/11/16
--- OUTSIDE RECORDS SUMMARY | 2024-11-19 09:03 | XMS_ITS | Data Portability ---
Author Organization [place] - [facility], Allergy Address [address] [address] Care Team Providers Care Machining Manager Name Role Phone HETALCHRISTIANO SUNITHA Primary Care Provider SUNITHA BOSS Referring Provider Assessment Encounter Date Assessment Date Assessment LastModified by Organization Details LastModified Time 08/06/2024 08/06/2024 Recommendatio ns: Follow up with referring provider. [email or web address] Not available 08/06/2024 11:38:54 Plan of Treatment Reminders Order Date Submit Date Provider Last Modified By Organization Details Last Modified Time Details Appointments None record ed. Lab None record ed. Referral None record ed. Procedures None record ed. Surgeries None record ed. Imaging None record ed. Medication Orders None record ed. Patient TargetsNo targets recorded. Patient InstructionsNo instructions recorded. Reason for Referral None Reported. Problems Name Problem SNOMED Code Status Onset Date Resolution Date Notes Provider Name and Address Organization Details Recorded Time Abnormal gait 00449554 Active 2014 Other abnormali ties of gait and mobility; Note: Date Diagnosed : 08/13/2015 4:27 PM (R26.89) Not Available [facility] 4 02:23:03 Candidal otitis externa 88006569 Active 2021 Candidal otitis externa; Note: Date Diagnosed : 04/12/2022 2:51 PM (B37.84) Not Available [facility] 4 02:22:57 Itching of skin 456287455 Active 2021 Itch NOS; Note: Date Diagnosed : 04/12/2022 2:51 PM (L29.9) Not Available [facility] 4 02:23:12 Benign paroxysma l positiona l vertigo 866954618 Active 2021 Benign paroxysma l vertigo, unspecifi ed ear; Note: Date Diagnosed : 04/12/2022 2:51 PM (H81.10) Not Available [facility] 4 02:23:21 Dizziness and giddiness 824981408 Active 2014 Dizziness and giddiness ; Note: Date Diagnosed : 08/13/2015 4:22 PM (R42) Not Available [facility] 4 02:23:19 Disturban ce of salivary secretion 76081108 Active 2021 Xerostomi a; Note: Date Diagnosed : 04/28/2022 9:36 AM (K11.7) Not Available [facility] 4 02:23:15 Sensorine ural hearing loss of bilateral ears 395861163 Active 2014 Sensorine ural hearing loss, bilateral ; Note: Date Diagnosed : 08/13/2015 4:22 PM (H90.3) Not Available [facility] 4 02:23:20 Impacted cerumen in right ear 04853037858 61693 Active 2021 Impacted cerumen, right ear; Note: Date Diagnosed : 04/12/2022 2:40 PM (H61.21) Not Available [facility] 4 02:22:50 Disorder of smell 859177972 Active 2021 Other disturban rochelle of smell and taste; Note: Date Diagnosed : 04/28/2022 9:37 AM (R43.8) Not Available [facility] 4 02:23:26 Disorder of taste 017710468 Active 2021 Other disturban rochelle of smell and taste; Note: Date Diagnosed : 04/28/2022 9:37 AM (R43.8) Not Available [facility] 4 02:23:26 Superfici al mycosis 017479012 Active 2021 Other specified superfici al mycoses; Note: Date Diagnosed : 04/12/2022 2:51 PM (B36.8) Not Available [facility] 4 02:22:59 Impacted cerumen of bilateral ears 51927720438 06554 Active 2023 VINH ROBERTS MD [address] 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,[place] [address], [place], [address] , [facility] - [facility] 4 11:06:01 Problem Notes None recorded. Procedures Surgical History Date Name Laterality Status Provider Name and Address Organization Details Recorded Time Comp Audio with Tymps (05285 & 90993) completed Annie Bruce [place] - [facility] 08/06/2024 11:39:01 Cerumen removal with microscope bilateral completed VINH ROBERTS MD [address] [place] [address],[place] [address], [place], [address], [facility] - [facility] 08/06/2024 11:04:16 Imaging Results None recorded. Procedure Notes None recorded. Medical Equipment None Reported. Allergies Allergen ID Allergen Name Allergen Category Reaction Reaction Severity Criticality Documentation Date Start Date Code Code System Note Provider Name and Address Organization Details Recorded Time 66371 Product containin g 3-hydroxy -3-methyl glutaryl- coenzyme A reductase inhibitor (product) medicatio n other Not available Not available 01/23/2024 14282 009 SNOMED React ion: unkno wn, unspe cifie d;; Not Available [facility] 4 00:58:21 Medications Name Sig Start Date Stop Date Status Note LastModified by Organization Details LastModified Time losartan 50 mg tablet TAKE 1 TABLET BY MOUTH DAILY active Not Available Not Available No t Available atorvasta tin 40 mg tablet TAKE 1 TABLET BY MOUTH EVERYDAY AT BEDTIME active Not Available Not Available No t Available chlorthal idone 25 mg tablet TAKE 1 TABLET BY MOUTH EVERY DAY 08/06 completed Not Available Not Available Not Available aspirin 81 mg tablet,de layed release TAKE 1 TABLET BY MOUTH EVERY DAY active Not Available Not Available No t Available amoxicill in 875 mg tablet TAKE 1 TABLET BY MOUTH EVERY 12 HOURS FOR 7 DAYS 08/06 completed Not Available Not Available Not Available pravastat in 10 mg tablet 08/06 completed Medicati on ID: [id number] B rand Name: pravasta tin Send Method: E-Prescr ibed Sub s Allowed: subs OK Medic ationGen ericName : pravasta tin Not Available Not Available Not Available clotrimaz ole-betam ethasone 1 %-0.05 % topical cream Apply 1 a small amount twice a day 08/06 completed Medicati on ID: [id number] D uration Value: 14 Prescri bed By Name: Sherrell Pérez nd Name: clotrima zole-bet amethaso ne Send Method: E-Prescr ibed Sub s Allowed: subs OK Speci al Instruct ion: Apply with fingerti p to external ear TID X 2 week and as needed Rich Weaver Name: clotrima zole-bet amethaso ne Not Available Not Available Not Available metronida zole 0.75 % topical cream PLEASE SEE ATTACHED FOR DETAILED DIRECTIO NS 08/06 completed Not Available Not Available Not Available losartan 25 mg tablet 08/06 completed Medicati on ID: [id number] B rand Name: losartan Send Method: E-Prescr ibed Sub s Allowed: subs OK Medic ationGen ericName : losartan Not Available Not Available Not Available gabapenti n 100 mg capsule 04/12 completed Medicati on ID: [id number] D uration Value: 30 Brand Name: gabapent in Send Method: E-Prescr ibed Sub s Allowed: subs OK Medic ationGen ericName : gabapent in Not Available Not Available Not Available fluocinol one acetonide oil 0.01 % ear drops 08/06 completed Medicati on ID: [id number] B rand Name: fluocino lone acetonid e oil Send Method: E-Prescr ibed Sub s Allowed: subs OK Medic ationGen ericName : fluocino lone acetonid e oil Not Available Not Available Not Available Vitals None Recorded Social History None recorded. Functional Status None recorded. Mental Status None recorded. Family History Nothing Reported. Medical History Condition Response High Cholesterol Y Hypertension Y Gynecological HistoryNo gynecological history recorded. Obstetrics History GPAL:G 0 P 0 0 0 0 Past Encounters Encounter ID Performer Location Encounter Start Date Encounter Closed Date Diagnosis/Indication Diagnosis SNOMED-CT Code Diagnosis ICD10 Code Diagnosis Note [id number] VINH ROBERTS MD [facility] [address] [address] 08/06/2024 10:36:10 08/06/2024 12:30:13 Impacted cerumen of bilateral ears [id number] 221479 H61.23 Severe cerumen impactions removed bilaterall y, with a subjective improvemen t in her hearing on the right. 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 Recommend applicatio n of clotrimazo le/betamet hasone cream to be applied by fingertip to the external auditory meatus three times a day for two weeks. Patient may repeat this as necessary for recurrence of symptoms. Prescripti on sent to patient's pharmacy. Avoidance of Q-tips recommende d to reduce the risk of recurrence . Sensorineu ral hearing loss of bilateral ears 357883890 H90.3 Audiologic al evaluation results:Ri ght ear:{{Norm al* Normal through 2 kHz Mild M oderate Mo derately-s evere Humaira re Profoun d}} {{hearing hearing. s loping to a mild slopi ng to a moderate s loping to moderately severe slo ping to severe slo ping to profound* flat high frequency low frequency mid frequency cookie bite garibay curve}} {{with sen sorineural hearing loss with* cond uctive hearing loss with mixed hearing loss with}} {{excellen t* good fa ir poor no measurable }} word recognitio n.Left ear:{{Norm al* Normal through 2 kHz Mild M oderate Mo derately-s evere Humaira re Profoun d}} {{hearing hearing. s loping to a mild slopi ng to a moderate s loping to moderately severe slo ping to severe* sl oping to profound f lat high frequency low frequency mid frequency cookie bite garibay curve}} {{with sen sorineural hearing loss with* cond uctive hearing loss with mixed hearing loss with}} {{excellen t* good fa ir poor no measurable }} word recognitio n. Tympanomet ry:Right Ear:{{Type A Type As Type Ad* Type C Type C, shallow & rounded Ty pe B Type B with large volume Cou ld not maintain a hermetic seal}}Left Ear:{{Type A* Type As Type Ad Type C Type C, shallow & rounded Ty pe B Type B with large volume Cou ld not maintain a hermetic seal}}Wendie ent's audiogram shows bilateral {{mild mod erate* sev ere}} sensorineu ral hearing loss with {{well maintained * moderate ly reduced po or}} speech discrimina tion. There is enough hearing loss to affect day-to-day hearing performanc e. We discussed in detail the pros and cons of amplificat ion (hearing aids). We discussed the connection between untreated hearing loss and increased risk of dementia, falling and accidents. After full discussion , the patient expressed {{interest * no interest}} in learning more about amplificat ion options. Accordingl y {{we will set them up for a hearing aid evaluation I have provided a copy of the audiogram and medical clearance for amplificat ion so the patient can pursue this at their convenienc e* I have provided a copy of the audiogram, a list of [facility] hearing aid providers, and medical clearance for amplificat ion so the patient can pursue this at their convenienc e}}. Patient is medically cleared for amplificat ion {{in the right ear in the left ear bilate rally*}}. [id number] DORITA ALEMAN [facility] [address] [address] 08/06/2024 11:38:20 08/07/2024 07:11:22 Sensorineural hearing loss of bilateral ears [id number] H90.3 Audiologic al evaluation results:Ri ght ear:{{Norm al* Normal through 2 kHz Mild M oderate Mo derately-s evere Humaira re Profoun d}} {{hearing hearing. s loping to a mild slopi ng to a moderate s loping to moderately severe slo ping to severe slo ping to profound* flat high frequency low frequency mid frequency cookie bite garibay curve}} {{with sen sorineural hearing loss with* cond uctive hearing loss with mixed hearing loss with}} {{excellen t* good fa ir poor no measurable }} word recognitio n.Left ear:{{Norm al* Normal through 2 kHz Mild M oderate Mo derately-s evere Humaira re Profoun d}} {{hearing hearing. s loping to a mild slopi ng to a moderate s loping to moderately severe slo ping to severe* sl oping to profound f lat high frequency low frequency mid frequency cookie bite garibay curve}} {{with sen sorineural hearing loss with* cond uctive hearing loss with mixed hearing loss with}} {{excellen t* good fa ir poor no measurable }} word recognitio n. Tympanomet ry:Right Ear:{{Type A Type As Type Ad* Type C Type C, shallow & rounded Ty pe B Type B with large volume Cou ld not maintain a hermetic seal}}Left Ear:{{Type A* Type As Type Ad Type C Type C, shallow & rounded Ty pe B Type B with large volume Cou ld not maintain a hermetic seal}} Health Concerns Section Related Observation LastModified by Organization Detai ls LastModified Time None Recorded Concern Status LastModified by Organization Details LastModified Time None Recorded Advance Directives Directive None Recorded Payers Encounter Date Sequence Insurance Name Policy Number Policy Roth Covered Member ID Roth Member ID Guarantor Name 08/06/2024 1 [place] [employer] Ayesha Kitchen [id number] 1 Ayesha L Imtiaz 08/06/2024 2 [facility] [id number] Ayesha Renetta Kitchen [id number] Ayesha Kitchen 08/06/2024 1 [place] [employer] Ayesha Kitchen [id number] 1 Ayesha Renetta Kitchen 08/06/2024 2 [facility] [id number] Ayesha Renetta Kitchen [id number] Ayesha Kitchen Notes Date Note Type Note Provider Name and Address Organization Details Recorded Time 08/06/2024 text/html Patient who I evaluated back in April 2022, and in August 2015 prior to that. She has asymmetric sensorineural hearing loss which has been evaluated MRI. She was noted at her last visit to have positionally induced vertigo consistent with BPPV, so patient referred to [facility]. She had some fungal dermatitis of her external auditory meati which was treated with clotrimazole/betame thasone cream. She has bilateral high-frequency sensorineural hearing loss amenable to amplification. She recognizes that she has hearing loss, but feels like she cannot afford hearing aids. Patient comes in today for evaluation of her ears and hearing. Back in late June she woke up with severe hearing loss in the right ear and blockage sensation. She tried some kmkk-oyg-fkxireb earwax drops without resolution. About 3 weeks later she started noticing some improvement. The hearing seems better but not back to its baseline normal. Patient noted worsening in her baseline balance function during the period of blockage. Patient also has had recurrence of the itchy, flaky skin that occasionally demonstrates weepiness in her external auditory meati. 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 VINH ROBERTS MD [address] [place] [address], [place], [address], [place] - [facility] 08/06/2024 12:17:41 OBGyn Episode No OBEpisode recorded.
--- OUTSIDE RECORDS SUMMARY | 2024-11-19 09:03 | XMS_ITS | Data Portability ---
Author Organization [facility], PAIN OFFICE Address [address] [facility],[address] [place] [address] Care Team Providers Care Teen Counselor Name Role Phone ÓSCAR KAMAR Referring Provider SUNITHA BOSS Primary Care Provider [phone] Assessment Encounter Date Assessment Date Assessment LastModified by Organization Details LastModified Time 10/19/2016 10/19/2016 Ayesha Kitchen is a 71 year old woman with complaints of burning pain in mid back region radiating into the left chest . On exam, she has pain on flexion . I recommend a trial of [place] taping with [facility] at [facility] and to follow up in four weeks to assess the benefits. I have advised her to bring CD of her MRI and CT scan of the abdomen. She will follow up to review the same and for further treatment plans. I have encouraged to continue physical therapy and discussed the importance of core strengthening. [email or web address] Not available 10/19/2016 13:54:09 01/12/2017 01/12/2017 Ayesha Kitchen is a 71 year old woman with complaints of burning pain in mid back region radiating into the left chest . On exam, she has pain on flexion . She is here for a follow up after physical therapy at [facility] . She reports good ongoing pain benefit and is doing the exercises at home. I have given her a sample of Pennsaid for her knee pain and chest wall pain. If effective , I will prescribe Pennsaid(topica l diclofenac gel). I have encouraged to continue physical therapy and discussed the importance of core strengthening. [email or web address] Not available 01/13/2017 09:39:58 02/13/2017 02/13/2017 Ayesha Kitchen is a 71 year old woman with complaints of burning pain in mid back region radiating into the left chest . On exam, she has pain on flexion . She is here for a Trial of trigger points in her left paraspinal muscle in her lower thoracic region under ultrasound guidance. The risks and benefits of the procedure were reviewed in detail . She wishes to proceed. She will follow up in two weeks for a repeat injection as needed. [email or web address] Not available 02/15/2017 11:01:51 03/06/2017 03/06/2017 Ayesha Kitchen is a 71 year old woman with complaints of burning pain in mid back region radiating into the left chest . On exam, she has pain on flexion . She is here for a follow up after a trial of trigger points in her left paraspinal muscle in her lower thoracic region under ultrasound guidance. She reports some pain benefit. I recommend a repeat trigger point injection under fluoroscopic guidance. The risks and benefits of the procedure were reviewed in detail . She wishes to proceed. An appointment has been made. I have started her a low dose Lyrica 25 mg at night. A free trial prescription was given. [email or web address] Not available 03/06/2017 10:58:47 03/27/2017 03/27/2017 Ayesha Kitchen is a 71 year old woman with complaints of burning pain in mid back region radiating into the left chest . On exam, she has pain on flexion . She is here for a follow up after a trial of lyrica 25 mg at night. She reports some pain benefit. I recommend increasing the dose to 50 mg at night and have advised her to take it 2 hours before bedtime. I have also ordered a chest X-ray . Chest X-ray shows no fractures and no acute pulmonary findings. [email or web address] Not available 04/23/2017 12:41:22 Plan of Treatment Reminders Order Date Submit Date Provider Last Modified By Organization Details Last Modified Time Details Appointments None recorded. Lab None recorded. Referral physical therapist referral 2016 017 [facility], [address] [facility], [facility] [address], [place], [address], 16:00:53 Procedures None recorded. Surgeries None recorded. Imaging None recorded. Medication Orders None recorded. Patient TargetsNo targets recorded. Patient Instructions Encounter Date Encounter Id Patient Instructions Last Modified By Organization Details Last Modified Time 10/19/2016 [id number] She was advised against bed rest lasting longer than four days and to continue activities as tolerated. [email or web address] Not available 10/19/2016 13:51:01 01/12/2017 [id number] She was advised against bed rest lasting longer than four days and to continue activities as tolerated. [email or web address] Not available 01/13/2017 09:38:08 02/13/2017 [id number] She was advised against bed rest lasting longer than four days and to continue activities as tolerated. [email or web address] Not available 02/15/2017 11:00:29 03/06/2017 [id number] She was advised against bed rest lasting longer than four days and to continue activities as tolerated. [email or web address] Not available 03/06/2017 10:55:30 03/27/2017 [id number] She was advised against bed rest lasting longer than four days and to continue activities as tolerated. [email or web address] Not available 04/23/2017 12:38:50 Reason for Referral Referring Physician: Paresh chairez, Pain Management, Encounter Date: 10/19/2016 Problems Name Problem SNOMED Code Status Onset Date Resolution Date Notes Provider Name and Address Organization Details Recorded Time Lumbosacral radiculitis 87093097 Active Paresh lamar MD [address] [facility] , [address], [place], [address], [place] [facility] 5 08:25:23 Foot pain 97631015 Active Paresh lamar MD [address] [facility] , [address], [place], [address], [place] [facility] 5 08:25:23 Thoracic back pain 197969403 Active Paresh lamar MD [address] [facility] , [address], [place], [address], [place] [facility] 5 08:25:23 Problem Notes None recorded. Procedures Surgical History Date Name Laterality Status Provider Name and Address Organization Details Recorded Time 02/14/20 17 Trigger Point Injections under ultrasound guidance completed Paresh Dobbs MD [address] [facility] , [address], [place], [address], [place] [facility] 02/15/2017 10:59:44 09/11/19 15 Other completed Alva Nguyen [place] - [facility] 07/29/2015 15:02:37 09/11/19 13 Cataract Surgery completed Alva Nguyen [place] - [facility] 07/29/2015 15:02:37 09/11/18 98 Hysterectomy completed Alva Nguyen [place] - [facility] 07/29/2015 15:02:37 09/11/18 97 Hernia Repair completed Alva Nguyen [place] - [facility] 07/29/2015 15:02:37 Other completed Alva Nguyen [place] - [facility] 10/19/2016 13:11:51 Imaging Results None recorded. Procedure Notes None recorded. Medical Equipment None Reported. Allergies Allergen ID Allergen Name Allergen Category Reaction Reaction Severity Criticality Documentation Date Start Date Code Code System Note Provider Name and Address Organization Details Recorded Time 33196 Product containin g 3-hydroxy -3-methyl glutaryl- coenzyme A reductase inhibitor (product) medicatio n nausea Not available Not available 07/29/2015 03683 009 SNOMED GI upset , light headn ess Alva longoria, [facility] 5 15:02:37 Medications Name Sig Start Date Stop Date Status Note LastModified by Organization Details LastModified Time azithromyci n 250 mg tablet 01/12 completed Not Available Not Available Not Available metoclopram shena 5 mg/5 mL oral solution 10/19 completed Not Available Not Available Not Available metronidazo le 500 mg tablet active Not Available Not Available Not Available oxycodone-a cetaminophe n 5 mg-325 mg tablet 10/19 completed Not Available Not Available Not Available amitriptyli ne 10 mg tablet TAKE 1 TABLET AT BEDTIME NEEDED INCREASE BY 1 PER WEEK TO MAXIMUM OF 4 TABLETS AT BEDTIME 03/06 completed Not Available Not Available Not Available cephalexin 500 mg capsule 10/19 completed Not Available Not Available Not Available clotrimazol e-betametha sone 1 %-0.05 % topical cream 02/13 completed Not Available Not Available Not Available docusate sodium 100 mg capsule TAKE ONE CAPSULE BY MOUTH TWICE A DAY active Not Available Not Available No t Available gabapentin 100 mg capsule TAKE 1 CAPSULE(S ) EVERY DAY BY ORAL ROUTE AT BEDTIME FOR 30 DAYS. 10/19 completed Not Available Not Available Not Available ibuprofen 600 mg tablet active Not Available Not Available Not Available fluticasone propionate 50 mcg/actuati on nasal spray,suspe nsion SPARAY 2 SPRAYS IN EACH NOSTRIL DAILY 10/19 completed Not Available Not Available Not Available amoxicillin 875 mg-potassiu m clavulanate 125 mg tablet TAKE 1 TABLET BY MOUTH 2 TIMES DAILY. 10/19 completed Not Available Not Available Not Available Estrace 0.01% (0.1 mg/gram) vaginal cream active Not Available Not Available Not Available ezetimibe 10 mg tablet 02/13 completed Not Available Not Available Not Available lactulose 10 gram/15 mL oral solution 10/19 completed Not Available Not Available Not Available Lyrica 25 mg capsule TAKE ONE CAPSULE BY MOUTH AT BEDTIME 2 HOURS PRIOR TO BEDTIME active Not Available Not Available No t Available Lyrica 150 mg capsule TAKE ONE CAPSULE BY MOUTH TWICE A DAY 10/19 completed Not Available Not Available Not Available Vitamin D active Not Available Not Florencia ilable Not Available Amitiza 24 mcg capsule Take 1 capsule twice a day by oral route. 02/13 completed Not Available Not Available Not Available fluocinolon e acetonide oil 0.01 % ear drops 10/19 completed Not Available Not Available Not Available peg 3350-electr olytes 236 gram-22.74 gram-6.74 gram-5.86 gram solution TAKE 8 OUNCE BY MOUTH DIRECTED DIRECTED 10/19 completed Not Available Not Available Not Available Ibuprofen PM as needed active Not Available Not Available No t Available Multi Vitamin active Not Available Not Available Not Available Fluzone High-Dose (PF) 180 mcg/0.5 mL intramuscul ar syringe TO BE ADMINISTE RED BY PHARMACIS T FOR IMMUNIZAT ION active Not Available Not Available No t Available Vitals Date Recorded Heart rate Oxygen saturation Oxygen saturation in Arterial blood by Pulse oximetry Systolic blood pressure Diastolic blood pressure Provider Name and Address Organization Details Last Updated DateTime 7 78 /min 96 % 96 % 142 mm[Hg] 89 mm[Hg] Alva Nguyen [facility] - [facility] 7 13:06:10 Date Recorded Heart rate Oxygen saturation Oxygen saturation in Arterial blood by Pulse oximetry Systolic blood pressure Diastolic blood pressure Provider Name and Address Organization Details Last Updated DateTime 7 83 /min 96 % 96 % 152 mm[Hg] 86 mm[Hg] Alva Nguyen [place] [facility] 7 14:35:37 Date Recorded Heart rate Oxygen saturation Oxygen saturation in Arterial blood by Pulse oximetry Systolic blood pressure Diastolic blood pressure Provider Name and Address Organization Details Last Updated DateTime 7 78 /min 97 % 97 % 182 mm[Hg] 78 mm[Hg] Alva Nguyen [place] [facility] 7 08:54:34 Date Recorded Heart rate Oxygen saturation Oxygen saturation in Arterial blood by Pulse oximetry Systolic blood pressure Diastolic blood pressure Provider Name and Address Organization Details Last Updated DateTime 7 78 /min 97 % 97 % 152 mm[Hg] 73 mm[Hg] Alva Nguyen [place] [facility] 7 09:18:05 Date Recorded Heart rate Oxygen saturation Oxygen saturation in Arterial blood by Pulse oximetry Systolic blood pressure Diastolic blood pressure Provider Name and Address Organization Details Last Updated DateTime 7 71 /min 97 % 97 % 155 mm[Hg] 64 mm[Hg] Alva Nguyen [place] - [facility] 7 10:29:08 Social History Question Answer Notes LastModified by Organizat ion Details LastModified Time Tobacco Smoking Status Never [facility]oker Not Available [facility] 06/26/2020 03:16:12 What Is Your Level Of Alcohol Consumption? Occasional [id number] Information not available 06/26/2020 Are You Currently Employed? No [id number] Information not available 06/26/2020 Which Illicit Or Recreational Drugs Have You Used? No [id number] Information not available 06/26/2020 Education 2 Year College Informatio n not available 07/29/2015 Live Alone Or With Others? Alone Information not available 07/29/2015 Marital Status Informatio n not available 07/29/2015 Sex: Unknown Functional Status None recorded. Mental Status None recorded. Family History Relationship Description Onset Age of this Age Resolved Age Notes LastModified by Organization Details LastModified Time Brother Diabetes mellitus [email or web address] Not available 10/2014 13:52:21 Brother Heart disease [email or web address] Not available 10/2014 13:52:21 Medical History Condition Response Cancer Y Arthritis Y High Cholesterol Gynecological HistoryNo gynecological history recorded. Obstetrics History GPAL:G 0 P 0 0 0 0 Past Encounters Encounter ID Performer Location Encounter Start Date Encounter Closed Date Diagnosis/Indication Diagnosis SNOMED-CT Code Diagnosis ICD10 Code Diagnosis Note [id number] Paresh Dobbs MD PAIN OFFICE [address] [employer] [address] [facility] [place] [address] 07/29/2015 14:17:19 08/10/2015 08:49:23 Lumbosacral radiculitis 08877381 M54.17 Foot pain 21840578 M79.6 71 M79.672 Thoracic back pain 76486 8004 M54.6 [id number] Paresh Dobbs MD PAIN OFFICE [address] [facility] [place] [address] 08/10/2015 14:18:43 08/12/2015 13:59:29 Foot pain 83779243 M79.671 M79.672 Thoracic back pain 23917 8004 M54.6 Lumbosacra l radiculitis 29886965 M54.17 [id number] Paresh Dobbs MD PAIN OFFICE [address] [facility] [place] [address] 10/19/2016 13:00:25 10/19/2016 15:04:35 Lumbosacral radiculitis 02868533 M54.17 Foot pain 94022884 M79.6 71 M79.672 Thoracic back pain 81363 8004 M54.6 [id number] Paresh Dobbs MD PAIN OFFICE [address] [facility] [place] [address] 01/12/2017 13:51:44 01/13/2017 09:48:54 Lumbosacral radiculitis 52039232 M54.17 Foot pain 71191887 M79.6 71 M79.672 Thoracic back pain 99819 8004 M54.6 Knee pain 10929937 M25.5 61 M25.562 [id number] Paresh Dobbs MD PAIN OFFICE [address] [facility] [place] [address] 02/13/2017 08:45:27 02/15/2017 14:15:35 Lumbosacral radiculitis 64733926 M54.17 Foot pain 18546508 M79.6 71 M79.672 Thoracic back pain 59095 8004 M54.6 Knee pain 33328942 M25.5 61 M25.562 Muscle pain 48353704 M79 .1 [id number] Paresh Dobbs MD [facility] PAIN OFFICE [address] [place] [address] 03/06/2017 09:02:50 03/06/2017 15:29:04 Lumbosacral radiculitis 70643154 M54.17 Foot pain 46484453 M79.6 71 M79.672 Thoracic back pain 61305 8004 M54.6 Knee pain 24022014 M25.5 61 M25.562 Muscle pain 82279669 M79 .1 [id number] Paresh Dobbs MD PAIN OFFICE [address] [place] [address] 03/27/2017 10:18:03 04/23/2017 12:42:22 Lumbosacral radiculitis 78609627 M54.17 Foot pain 90493848 M79.6 71 M79.672 Thoracic back pain 50332 8004 M54.6 Knee pain 43116639 M25.5 61 M25.562 Muscle pain 75110841 M79 .1 Health Concerns Section Related Observation LastModified by Organization Detai ls LastModified Time None Recorded Concern Status LastModified by Organization Details LastModified Time None Recorded Advance Directives Directive None Recorded Payers Encounter Date Sequence Insurance Name Policy Number Policy Roth Covered Member ID Roth Member ID Guarantor Name 10/19/2016 2 [employer] - [facility] [id number] Ayesha Kitchen [id number] Ayesha Kitchen 10/19/2016 1 MEDICARE B-[place]: [employer] Ayesha Kitchen [id number] Ayesha Kitchen 01/12/2017 2 [employer] - [employer] [id number] Ayesha Kitchen [id number] Ayesha Kitchen 01/12/2017 1 [place]: [facility] GOVERNMENT SERVICES Ayesha Kitchen [id number] Ayesha Kitchen 02/13/2017 2 [facility] [id number] Ayesha Kitchen [id number] Ayesha Kitchen 02/13/2017 1 MEDICARE B-GA: [facility] Ayesha Kitchen [id number] Ayesha Kitchen 03/06/2017 2 [facility] [id number] Ayesha Kitchen [id number] Ayesha Kitchen 03/06/2017 1 MEDICARE B-[place]: [facility] SERVICES Ayesha Kitchen [id number] Ayesha Kitchen 03/27/2017 2 [facility] [id number] Ayesha Kitchen [id number] Ayesha Kitchen 03/27/2017 1 MEDICARE B-[place]: [facility] SERVICES Ayesha Kitchen [id number] Ayesha Kitchen Notes Date Note Type Note Provider Name and Address Organization Details Recorded Time 10/19/2016 text/html She is here for a follow up. She was last seen in 2014. She states she has been having pain in the left side of her chest. She is S/P Pelvic floor repair with mesh by Dr. Ramos and since this surgery has been having constipation. She states she has no sensation in the pelvic floor and feels pain in the left side of her back when she has to have a bowel movement. She states she has had CT Scan of the abdomen and colonoscopy done . The results are not available for review today. She has had MRI thoracic spine and does not have the CD with her. She is complaining of foot pain and sees Dr. Rosas. She is currently on amitryptiline and states she has some pain benefit. Paresh Dobbs MD [address] [facility] , [facility] [address], [place], [address], [facility] Management 10/24/2016 14:55:37 01/12/2017 text/html She is here for a follow up to Physical therapy . She reports good ongoing pain benefit. She states she has a trip coming up . She is worried about sitting on a bus for a couple of hours. She does continue to have pain in her chest wall but intensity is less now. She is doing exercises at home as well. Paresh Dobbs MD [address] [facility] , [address], [place], [address], [facility] Pain Management 01/23/2017 08:55:29 02/13/2017 text/html She is here for a trial of trigger point injection in her left paraspinal muscle in her lower thoracic region under ultrasound guidance Paresh Dobbs MD [address] [facility] , [address], [place], [address], [facility] Pain Management 02/16/2017 16:43:00 03/06/2017 text/html She is here for a follow up after a trial of trigger point injection in her left paraspinal muscle in her lower thoracic region under ultrasound guidance. She reports some pain benefit for two weeks after the injection. She states physical therapy was helping her. She states she is very sensitive to medications. Paresh Dobbs MD [address] [facility] , [address] [place] [address], [place], [address], [facility] Pain Management 03/15/2017 08:33:33 03/27/2017 text/html She is here for a follow up. She is complaining of left sided chest wall pain. She is S/P fall and feels she has bruised her ribs. She reports some pain benefit with Lyrica 25 mg in the evening. She is reporting no side effects with Lyrica. Paresh Dobbs MD [address] [facility] , [facility] [address], [place], [address], [facility] Pain Management 04/26/2017 15:33:55 OBGyn Episode No OBEpisode recorded.
--- OUTSIDE RECORDS SUMMARY | 2024-11-19 09:04 | XMS_ITS | Data Portability ---
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 Jeremías Boss DO [facility] Internal Medicine [address] [facility],[place] [address] 12/01/2021 09:35:51 12/01/2021 16:21:54 Impaired fasting glycemia 995421623 R73.01 stable with an a1c of 6.1 and before that was 5.9 last note and will have that rechecked Injury of ribs 417178340 S29.9XXD she will be seeing a new neurologis t dr levi february 08her discomfort is affecting the quality of her life has had major work ups including T spine area and her thoracic xrays and MRI has also had nerve injections and blocks as well done by dr Kwon and [facility] has had enormous amounts of workup but no specific relief has been noted [id number] Jeremías Boss DO [facility] [address] [facility], [place] [address] 03/28/2022 11:38:32 03/28/2022 12:33:48 Pre-surgery evaluation 495494875 Z01.818 Per the 2017 ACC cardiac risk stratifica tion (revised) this patient is cleared for the proposed surgical procedure for her OS medial canthus lesion removalpt understand s to take her medication on morning of her procedure (losartan and pravastati n). Active or passive immunization 072346438 Z23 advised she is due for new shingles will consider Depression screening 171 779560 Z13.31 Has a lot going on with her health thinks that is why she is down [id number] MARIO RAMIREZ [facility] Internal Medicine [address] [facility], [place] [address] 06/17/2022 11:32:55 06/17/2022 14:08:58 Spasm of back muscles 162068241 M62.830 will start on msk relaxer and anti-infla mmatory for the patient for back spasm [id number] Jeremías Boss [facility] Internal Medicine [address] [facility], [place] [address] 12/09/2022 11:22:02 12/12/2022 10:13:50 Adult health examination 475079198 Z00.01 she seems to be doing ok if it werent for the the abdom wall pain Screening for cardiovascular system disease 601712582 Z13.6 Screening for malignant neoplasm of colon 367897075 Z12.11 she is up to date with colonoscop y 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 she has rx for gabapentin and ;she will start this and try it and let me know how it works in a couple weeks [id number] Jeremías Boss [facility] Internal Medicine [address] [facility], [place] [address] 01/26/2024 09:57:17 01/26/2024 13:07:05 Hyperlipidemia 01336416 E78.2 will need lab Vitamin D deficiency 347 03681 E55.9 needs to restart her vitamins and D3 will rechk her lab Depression screening 171 643220 Z13.31 Has a lot going on with her health thinks that is why she is down but not enough for her to take meds Dyspnea on exertion 6084 5006 R06.09 worrisome for atypical anginal symptoms Impaired f asting glycemia 066963976 R73.01 stable with an a1c of 6.1 and before that was 5.9 last note and will have that rechecked Sleep apnea 54395288 G47 .30 snores, daytime somnolence Fatigue 80157406 R53.83 will cont w/u as her echo and ett were both excellent will f/u by getting these extra lab Health Concerns Section Related Observation LastModified by Organization Detai ls LastModified Time None Recorded Concern Status LastModified by Organization Details LastModified Time None Recorded Advance Directives Directive None Recorded Payers Encounter Date Sequence Insurance Name Policy Number Policy Roth Covered Member ID Roth Member ID Guarantor Name 12/01/2021 2 [employer] [id number] Ayesha Kitchen [id number] Ayesha Kitchen 12/01/2021 1 [place] [place] Ayesha Kitchen [id number] Ayesha Kitchen 03/28/2022 2 [employer] [id number] Ayesha Kitchen [id number] Ayesha Kitchen 03/28/2022 1 [place] Ayesha Kitchen [id number] 1 [id number] Ayesha Kitchen 06/17/2022 2 [employer] [id number] Ayesha Kitchen [id number] Ayesha Kitchen 06/17/2022 1 [place] Ayesha Kitchen [id number] 1 [id number] Ayesha Kitchen 12/09/2022 2 [employer] [id number] Ayesha Kitchen [id number] Ayesha Kitchen 12/09/2022 1 [place] Ayesha Kitchen [id number] 1 [id number] Ayesha Kitchen 01/26/2024 2 [employer] [id number] Ayesha Kitchen [id number] Ayesha Kitchen 01/26/2024 1 [place] [place] Ayesha Kitchen [id number] 1 [id number] Ayesha Kitchen Notes Date Note Type Note Provider Name and Address Organization Details Recorded Time 2 text/html relates that she is about the samestill troubled with vertigohere and is getting some swelling in her legsnot too bad lately as beforeleft shoulder pain was felt to be from a nerve problem and she was told to see a neurologist for her rib type pain Jeremías Boss DO [address] [place] [address], [address], [facility] Internal Medicine 12/01/2021 10:25:06 2 text/html Pre-OpReported bypatient.Risk Factorsno cognitive impairment; no functional impairment; no malnutrition; no frailty; able to climb a flight of stairs (exercise capacity>4 METS); no obstructive sleep apnea; non-smoker; no alcohol misuse; no illicit drug use; no chronic cardiopulmonary condition; not obese Anesthesia hx:no hx of anesthesia complications; no allergy to anesthetic agents; no family history of anesthesia complications Functional Ability:able to walk up stairs; able to perform heavy work around the house; no difficulty walking up hills; able to walk 4 mph here for 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 Denies instability, weakness, abnormal gait, or difficulties with movement. The patient wears correct, supportive shoes and is not otherwise severely visually impaired. The patient is full weight bearing and if using the assistance of a cane or walker feels supported and stable with the use of such devices. All medical conditions have been taken into account that may pose a risk for the patient for falls. Home grant, carpets and/or rugs do not pose a challenge for the patient. The patient has been educated about the use of vitamin D supplementation for bone health and prevention of hypotensive episodes that may increase risk for fall. All question and concerns were answered to the patient's satisfaction. Jeremías Boss DO [address] [place] [address], [address], [facility] Internal Medicine 03/28/2022 12:18:22 2 text/html c/o muscle strain patient has a msk strain after lifting and sleeping incorrectlyadvised using Icey-hot patches and starting MSK relaxer and meloxicam patient pain is on the right side, thoracic spine around T9, radiates downwardsmuscle is tight and painful to palpation MARIO RAMIREZ [address] [place], [address], [facility] Internal Medicine 06/17/2022 11:59:09 3 text/html Medicare Annual Wellness VisitReported bypatient.Diet and Nutrition:high caloric intake Fracture Risk:history of fractures;recent explained fracture Physical Activity:does not exercise on a regular basis;decreased physical activity;poor physical condition;deconditioned due to sedentary lifestyle Orientation:no disorientation to timeNotes:she is also down bc she is feeling all these issues . here for anuual check uprelates she had a lot of recent dental work and unfortunately developed vertigo and also developed poor taste since she had teeth removed (did not have covid)has been troubled with her pain along left lateral mid thoracic rib region radiating around to her epigastric area superficial and irritating Jeremías Boss DO [address] [place], [address], [facility] Internal Medicine 12/09/2022 12:12:43 4 text/html here for rechk doing ok but is stressedbc her son has moved back instates her energy is down and wants some labno cp does have onging pain in her back when she needs a bm Jeremías Boss DO [address] [place], [address], [facility] Internal Medicine 01/26/2024 10:52:19 OBGyn Episode No OBEpisode recorded.
== END 2024-11-19 08:59 | disposition home or self-care (01) ==
LOC: HO.HCS 08:23
PROVIDERS: PCP Internal Medicine; Visit Provider Nurse Practitioner Family
DX: R94.39 Abnormal result of other cardiovascular function study (principal); I10 Essential (primary) hypertension; E78.5 Hyperlipidemia, unspecified; R06.09 Other forms of dyspnea; R07.9 Chest pain, unspecified; E66.9 Obesity, unspecified; G47.10 Hypersomnia, unspecified
CPT/HCPCS: 93010; 99214; G2211

== ENCOUNTER → 2024-11-19 08:23 | Outpatient (BNVA) | payer MEDICARE, OTHER, SELFPAY | PROVIDERS: PCP Internal Medicine; Visit Provider Nurse Practitioner Family | DX: R94.39 Abnormal result of other cardiovascular function study (principal); R94.31 Abnormal electrocardiogram [ECG] [EKG]; I44.0 Atrioventricular block, first degree; R06.09 Other forms of dyspnea; R07.9 Chest pain, unspecified; E78.5 Hyperlipidemia, unspecified; E66.9 Obesity, unspecified; G47.10 Hypersomnia, unspecified; I10 Essential (primary) hypertension; Z68.41 Body mass index [BMI] 40.0-44.9, adult | CPT/HCPCS: 93005; 99212 ==

== ENCOUNTER 2024-12-17 08:38 | Outpatient (REF) | payer MEDICARE, OTHER, SELFPAY ==
--- OUTSIDE RECORDS SUMMARY | 2024-12-17 09:02 | XMS_ITS | Data Portability ---
Author Organization [place] - [facility], Allergy Address [address] [address] Care Team Providers Care Third Mate Name Role Phone HETALCHRISTIANO SUNITHA Primary Care Provider [phone] SUNITHA BOSS Referring Provider Assessment Encounter Date [...] Address Organization Details Recorded Time Abnormal gait 99551479 Active 2014 Other abnormali ties of gait and mobility; Note: Date Diagnosed : 08/13/2015 4:27 PM (R26.89) Not Available [facility] 4 02:23:03 Candidal otitis externa 19347176 Active 2021 Candidal otitis externa; Note: Date Diagnosed : 04/12/2022 2:51 PM (B37.84) Not Available [facility] 4 02:22:57 Itching of skin 792312507 Active 2021 Itch NOS; Note: Date Diagnosed : 04/12/2022 2:51 PM (L29.9) Not Available [facility] 4 02:23:12 Benign paroxysma l positiona l vertigo 587962531 Active 2021 Benign paroxysma l vertigo, unspecifi ed ear; Note: Date Diagnosed : 04/12/2022 2:51 PM (H81.10) Not Available [facility] 4 02:23:21 Dizziness and giddiness 012853790 Active 2014 Dizziness and giddiness ; Note: Date Diagnosed : 08/13/2015 4:22 PM (R42) Not Available [facility] 4 02:23:19 Disturban ce of salivary secretion 42200206 Active 2021 Xerostomi a; Note: Date Diagnosed : 04/28/2022 9:36 AM (K11.7) Not Available [facility] 4 02:23:15 Sensorine ural hearing loss of bilateral ears 578355445 Active 2014 Sensorine ural hearing loss, bilateral ; Note: Date Diagnosed : 08/13/2015 4:22 PM (H90.3) Not Available [facility] 4 02:23:20 Impacted cerumen in right ear 09557749285 79224 Active 2021 Impacted cerumen, right ear; Note: Date Diagnosed : 04/12/2022 2:40 PM (H61.21) Not Available [facility] 4 02:22:50 Disorder of smell 195037702 Active 2021 Other disturban rochelle of smell and taste; Note: Date Diagnosed : 04/28/2022 9:37 AM (R43.8) Not Available [facility] 4 02:23:26 Disorder of taste 824748667 Active 2021 Other disturban rochelle of smell and taste; Note: Date Diagnosed : 04/28/2022 9:37 AM (R43.8) Not Available [facility] 4 02:23:26 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 Other specified superfici al mycoses; Note: Date Diagnosed : 04/12/2022 2:51 PM (B36.8) Not Available [facility] 4 02:22:59 Impacted cerumen of bilateral ears 55963601090 13333 Active 2023 VINH ROBERTS MD [address] [facility],[place] [address], [place], [address] , [facility] - [facility] 4 11:05:41 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 Procedures Surgical History Date Name Laterality Status Provider Name and Address Organization Details Recorded Time Comp Audio with Tymps (41372 & 77143) completed Annie Bruce [place] - [facility] 08/06/2024 11:39:01 Cerumen removal with microscope bilateral completed VIHN ROBERTS MD [address] [place] [address],[place] [address], [place], [address], [facility] - [facility] 08/06/2024 11:04:16 Imaging Results None recorded. Procedure Notes None recorded. Medical Equipment None Reported. Allergies Allergen ID Allergen Name Allergen Category Reaction Reaction Severity Criticality Documentation Date Start Date Code Code System Note Provider Name and Address Organization Details Recorded Time 47620 Product containin g 3-hydroxy -3-methyl glutaryl- coenzyme A reductase inhibitor (product) medicatio n other Not available Not available 01/23/2024 04982 009 SNOMED React ion: unkno wn, unspe cifie d;; Not Available [facility] 4 00:58:21 Medications Name Sig Start [...] mg tablet 08/06 completed Medicati on ID: [id number] B rand Name: pravasta tin Send Method: E-Prescr ibed Sub s Allowed: subs OK Medic ationGen ericName : pravasta tin Not Available Not Available Not Available clotrimaz ole-betam ethasone 1 %-0.05 % topical cream Apply 1 a small amount twice a day 08/06 completed Medicati on ID: [id number] D uration Value: 14 Prescri bed By [...] mg tablet 08/06 completed Medicati on ID: [id number] B rand Name: losartan Send Method: E-Prescr ibed Sub s Allowed: subs OK Medic ationGen ericName : losartan Not Available Not Available Not Available gabapenti n 100 mg capsule 04/12 completed Medicati on ID: [id number] D uration Value: 30 Brand Name: gabapent in Send Method: E-Prescr ibed Sub s Allowed: subs OK Medic ationGen ericName : gabapent in Not Available Not Available Not Available fluocinol one acetonide oil 0.01 % ear drops 08/06 completed Medicati on ID: [id number] B rand Name: fluocino lone acetonid e oil Send Method: E-Prescr ibed Sub s Allowed: subs OK Medic ationGen ericName : fluocino lone acetonid e oil Not Available Not Available Not Available Vitals None Recorded Social History None recorded. Functional Status None recorded. Mental Status None recorded. Family History Nothing Reported. Medical History Condition Response Hypertension Y High Cholesterol Y Gynecological HistoryNo gynecological history recorded. Obstetrics History GPAL:G 0 P 0 0 0 0 Past Encounters Encounter ID Performer Location Encounter Start Date Encounter Closed Date Diagnosis/Indication Diagnosis SNOMED-CT Code Diagnosis ICD10 Code Diagnosis Note [id number] VINH ROBERTS MD [facility] [address] [address] 08/06/2024 10:36:10 08/06/2024 12:30:13 Impacted cerumen of bilateral ears [id number] 127589 H61.23 Severe cerumen impactions removed bilaterall y, with a subjective improvemen t in her hearing on the right. Candidal o titis externa 83204169 B37.84 Dermal mycosis 30769020 B36.9 The skin of the {{right le [...] Sensorineu ral hearing loss of bilateral ears 477753851 H90.3 Audiologic al evaluation results:Ri ght ear:{{Norm [...] copy of the audiogram, a list of [facility] hearing aid providers, and medical clearance for amplificat ion so the patient can pursue this at their convenienc e}}. Patient is medically cleared for amplificat ion {{in the right ear in the left ear bilate rally*}}. [id number] DORITA ALEMAN [facility] [address] [address] 08/06/2024 11:38:20 08/07/2024 07:11:22 Sensorineural hearing loss of bilateral ears 348133890 H90.3 Audiologic al evaluation results:Ri ght ear:{{Norm [...] [place] Ayesha Kitchen [id number] 1 Ayesha L Imtiaz 08/06/2024 2 [facility] [id number] Ayesha Renetta Kitchen [id number] Ayesha Kitchen 08/06/2024 1 [place] Ayesha Kitchen [id number] 1 Ayesha Renetta Kitchen 08/06/2024 2 [facility] [id number] Ayesha Renetta Kitchen [id number] Ayesha Kitchen Notes Date Note Type Note [...] ear and blockage sensation. She tried some iwrh-vxm-orsdsoe earwax drops without resolution. 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 VINH ROBERTS MD [address] [place] [address], [place], [address], [place] - [facility] 08/06/2024 12:17:41 OBGyn Episode No OBEpisode recorded.
--- OUTSIDE RECORDS SUMMARY | 2024-12-17 09:02 | XMS_ITS | Patient Health Record ---
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 Plan Of Treatment Pending Test Test Name Order Date X ray : Ankle, left 3V 02/12/2016 X ray : Foot, left 2V 01/23/2018 X ray : Foot, left 2V 08/28/2015 X ray : Foot, right 2V 08/28/2015 X ray : Foot, left 3V 10/02/2015 X ray : Foot, left 3V 05/30/2019 X ray : Foot, left 3V 10/16/2019 X ray : Foot, left 3V 10/14/2016 X ray : Foot, left 3V 01/22/2016 X ray : Foot, right 3V 09/21/2016 [id number] 08/28/2017 96484- Debride <25 sq cm 09/13/2017 05381- Debride <25 sq cm 10/26/2017 [id number] I&D ABSCESS- SIMPLE,SINGLE 018 47345, J0702- INJECT TENDON ORIGIN/INSER T 12/07/2016 Insurance Providers Payer Name Payer Address Payer Phone Subscriber Number Group Number Insured Name Patient Relationship to Insured Coverage Start Date Coverage End Date Medicare National [employer] [address] [place] [address] [id number] Ayesha Kitchen Self - patient is the insured 4 [employer] ([employer]) [address] [place] [id number] [phone] [id number] Ayesha Kitchen Self - patient is [...]
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
[2024-12-17 09:55] LABS: Alanine Aminotransferase 23 U/L (0-31); Albumin Level 3.9 g/dL (3.5-5.0); Alkaline Phosphatase 77 U/L (39-117); Anion Gap 11 (12-20); Aspartate Amino Transferase 25 U/L (5-31); Bilirubin Total 0.6 mg/dL (0.0-1.0); Blood Urea Nitrogen 23 mg/dL (9-16); Calcium 9.8 mg/dL (8.4-10.2); Carbon Dioxide 29 mmol/L (22-29); Chloride 106 mmol/L (96-108); Cholesterol 143 mg/dL (<200); Estimated Glomerular Filt Rate 47; Glucose Random 310 mg/dL (60-115); HDL Cholesterol 45 mg/dL (>40); LDL Cholesterol Calculated 72 mg/dL (<100); Potassium 4.2 mmol/L (3.3-5.1); Sodium 142 mmol/L (135-145); Total Protein 7.1 g/dL (6.5-8.0); Triglycerides 130 mg/dL (<150)
== END 2024-12-17 08:39 | disposition home or self-care (01) ==
LOC: HO.LAB 08:38
PROVIDERS: PCP Internal Medicine; Visit Provider Nurse Practitioner Family
DX: E78.5 Hyperlipidemia, unspecified (principal)
CPT/HCPCS: 36415; 80053; 80061

== ENCOUNTER 2025-01-21 09:27 | Outpatient (REF) | payer MEDICARE, OTHER, SELFPAY ==
--- OUTSIDE RECORDS SUMMARY | 2025-01-21 10:07 | XMS_ITS | Data Portability ---
Author Organization [facility] Pain Managem alban, PAIN OFFICE Address [address] [facility],[address] [place] [address] Care Team Providers Care Geophysical Support Specialist Name Role Phone ÓSCAR KAMAR Referring Provider SUNITHA BOSS Primary Care Provider Assessment Encounter Date Assessment Date Assessment [...] therapist referral 2016 017 [facility], [address] [facility], [facility] [address], [place], [address], 16:00:53 Procedures None recorded. Surgeries None recorded. Imaging None recorded. Medication Orders None recorded. Patient TargetsNo targets recorded. Patient Instructions Encounter Date Encounter Id Patient Instructions Last Modified By Organization Details Last Modified Time 10/19/2016 [id number] She was advised against bed rest lasting longer than four days and to continue activities as tolerated. [email or web address] Not available 10/19/2016 13:51:01 01/12/2017 [id number] She was advised against bed rest lasting longer than four days and to continue activities as tolerated. [email or web address] Not available 01/13/2017 09:38:08 02/13/2017 [id number] She was advised against bed rest lasting longer than four days and to continue activities as tolerated. [email or web address] Not available 02/15/2017 11:00:29 03/06/2017 [id number] She was advised against bed rest lasting longer than four days and to continue activities as tolerated. [email or web address] Not available 03/06/2017 10:55:30 03/27/2017 [id number] She was advised against bed rest lasting longer than four days and to continue activities as tolerated. [email or web address] Not available 04/23/2017 12:38:50 Reason for Referral Referring Physician: Paresh chairez, Pain Management, Encounter Date: 10/19/2016 Problems Name Problem SNOMED Code Status Onset Date Resolution Date Notes Provider Name and Address Organization Details Recorded Time Lumbosacral radiculitis 88995883 Active Paresh lamar MD [address] [facility] , [address], [place], [address], [place] [facility] 5 08:25:23 Foot pain 69644353 Active Paresh lamar MD [address] [facility] , [address], [place], [address], [place] [facility] 5 08:25:23 Thoracic back pain 818875516 Active Paresh lamar MD [address] [facility] , [address], [place], [address], [place] [facility] 5 08:25:23 Problem Notes None recorded. Procedures Surgical History Date Name Laterality Status Provider Name and Address Organization Details Recorded Time 02/14/20 17 Trigger Point Injections under ultrasound guidance completed Paresh Dobbs MD [address] [facility] , [address], [place], [address], [place] [facility] 02/15/2017 [...] Name and Address Organization Details Recorded Time 97161 Product containin g 3-hydroxy -3-methyl glutaryl- coenzyme A reductase inhibitor (product) medicatio n nausea Not available Not available 07/29/2015 69426 009 SNOMED GI upset , light headn [...] Social History Question Answer Notes LastModified by Post-i Details LastModified Time Tobacco Smoking Status Never [facility]oker [facility] 06/26/2020 03:16:12 Which Illicit Or Recreational Drugs Have You Used? No [id number] Information not available 06/26/2020 Education 2 Year College Information not available 07/29/2015 Live Alone Or With Others? Alone Information not available 07/29/2015 Marital Status Informatio n not available 07/29/2015 Sex: Unknown Functional Status Question Answer Note LastModified by Post-i Details LastModified Time What is your level of alcohol consumption? Occasional [id number] Information not available 06/26/2020 Are you currently employed? No [id number] Information not available 06/26/2020 Mental Status None recorded. Family History Relationship Description Onset Age of this Age Resolved Age Notes LastModified by Organization Details LastModified Time Brother Diabetes mellitus [email or web address] Not available 10/2014 13:52:21 Brother Heart disease tmanikantan Not available 10/2014 13:52:21 Medical History Condition Response Arthritis Y Cancer Y High Cholesterol Gynecological HistoryNo gynecological history recorded. Obstetrics History GPAL:G 0 P 0 0 0 0 Past Encounters Encounter ID Performer Location Encounter Start Date Encounter Closed Date Diagnosis/Indication Diagnosis SNOMED-CT Code Diagnosis ICD10 Code Diagnosis Note [id number] Paresh Dobbs MD PAIN OFFICE [address] [place] [address] 07/29/2015 14:17:19 08/10/2015 08:49:23 Lumbosacral radiculitis 34550859 M54.17 Foot pain 75456958 M79.6 71 M79.672 Thoracic back pain 56866 8004 M54.6 [id number] Paresh Dobbs MD [facility] [address] [place] [address] 08/10/2015 14:18:43 08/12/2015 13:59:29 Foot pain 12814073 M79.671 M79.672 Thoracic back pain 62643 8004 M54.6 Lumbosacra l radiculitis 71582544 M54.17 [id number] Paresh Dobbs MD [facility] [address] [place] [address] 10/19/2016 13:00:25 10/19/2016 15:04:35 Lumbosacral radiculitis 58339656 M54.17 Foot pain 33801083 M79.6 71 M79.672 Thoracic back pain 49895 8004 M54.6 [id number] Paresh Dobbs MD [facility] PA[facility] [address] [place] [address] 01/12/2017 13:51:44 01/13/2017 09:48:54 Lumbosacral radiculitis 50170077 M54.17 Foot pain 90456849 M79.6 71 M79.672 Thoracic back pain 13182 8004 M54.6 Knee pain 62468504 M25.5 61 M25.562 [id number] Paresh Dobbs MD PAIN OFFICE [address] [place] [address] 02/13/2017 08:45:27 02/15/2017 14:15:35 Lumbosacral radiculitis 95564726 M54.17 Foot pain 78424511 M79.6 71 M79.672 Thoracic back pain 74028 8004 M54.6 Knee pain 40510970 M25.5 61 M25.562 Muscle pain 07880321 M79 .1 [id number] Paresh Dobbs MD PAIN OFFICE [address] [facility] [address] 03/06/2017 09:02:50 03/06/2017 15:29:04 Lumbosacral radiculitis 14561596 M54.17 Foot pain 44823857 M79.6 71 M79.672 Thoracic back pain 98186 8004 M54.6 Knee pain 46592916 M25.5 61 M25.562 Muscle pain 80572730 M79 .1 [id number] Paresh Dobbs MD PAIN OFFICE [address] [facility] [place] [address] 03/27/2017 10:18:03 04/23/2017 12:42:22 Lumbosacral radiculitis 56479124 M54.17 Foot pain 89666723 M79.6 71 M79.672 Thoracic back pain 95415 8004 M54.6 Knee pain 77052349 M25.5 61 M25.562 Muscle pain 74153413 M79 .1 Health Concerns Section Related Observation LastModified by Organization Detai ls LastModified Time None Recorded Concern Status LastModified by Organization Details LastModified Time None Recorded Advance Directives Directive None Recorded Payers Encounter Date Sequence Insurance Name Policy Number Policy Roth Covered Member ID Roth Member ID Guarantor Name 10/19/2016 2 [facility] INDEMNITY PL[facility] - REPLACED BY [facility] [id number] Ayesha Kitchen [id number] Ayesha Kitchen 10/19/2016 1 MEDICARE B-OR: [facility] [employer] Ayesha Kitchen [id number] Ayesha Kitchen 01/12/2017 2 [facility] INDEMNITY PLAN - UNICARE [id number] Ayesha Kitchen [id number] Ayesha Kitchen 01/12/2017 1 MEDICARE B-[place]: [facility] Ayesha Kitchen [id number] Ayesha Kitchen 02/13/2017 2 [employer] [facility] [id number] Ayesha Kitchen [id number] Ayesha Kitchen 02/13/2017 1 MEDICARE B-OR: [facility] Ayesha Kitchen [id number] Ayesha Kitchen 03/06/2017 2 [facility] [id number] Ayesha Kitchen [id number] Ayesha Kitchen 03/06/2017 1 MEDICARE B-OR: [facility] Ayesha Kitchen [id number] Ayesha Kitchen 03/27/2017 2 [facility]MIN[facility] [id number] Ayesha Kitchen [id number] Ayesha Kitchen 03/27/2017 1 MEDICARE B-OR: [facility] SERVICES Ayesha Kitchen [id number] Ayesha Kitchen Notes Date Note Type Note [...] some pain benefit. Paresh Dobbs MD [address] [facility] , [address], [place], [address], [place] [facility] 10/24/2016 14:55:37 01/12/2017 text/html She [...] home as well. Paresh Dobbs MD [address] [facility] , [address], [place], [address], [facility] 01/23/2017 08:55:29 02/13/2017 text/html She is here for a trial of trigger point injection in her left paraspinal muscle in her lower thoracic region under ultrasound guidance Paresh Dobbs MD [address] [facility] , [facility] [address], [place], [address], [facility] Management 02/16/2017 16:43:00 03/06/2017 text/html [...] sensitive to medications. Paresh Dobbs MD [address] [facility] , [place] [address], [place], [address], [facility] Management 03/15/2017 08:33:33 03/27/2017 text/html She is here for a follow up. She is complaining of left sided chest wall pain. She is S/P fall and feels she has bruised her ribs. She reports some pain benefit with Lyrica 25 mg in the evening. She is reporting no side effects with Lyrica. Paresh Dobbs MD [address] [facility] , [facility] [address], [place], [address], [facility] Management 04/26/2017 15:33:55 OBGyn Episode No OBEpisode recorded.
--- OUTSIDE RECORDS SUMMARY | 2025-01-21 10:07 | XMS_ITS | Patient Health Record ---
Author Organization [facility] Address [address] [place] [address] Care Team Providers Care Charge Loader Name Role Phone Won RANDALL, Jeremías Primary Care Provider Jeremi Alfred Unavailable [phone] Allergies Allergen (clinical drug ingredient) Drug/Non Drug [...] primary osteoarthritis of the ankle and/or foot ([id number]) Primary osteoarthriti s, left ankle and foot [...] X ray : Foot, right 3V 09/21/2016 28526-VJT 08/28/2017 52079- Debride <25 sq cm 09/13/2017 04921- Debride <25 sq cm 10/26/2017 [id number] I&D ABSCESS- SIMPLE,SINGLE 018 58089, J0702- INJECT TENDON ORIGIN/INSER T 12/07/2016 Insurance Providers Payer Name Payer Address Payer Phone Subscriber Number Group Number Insured Name Patient Relationship to Insured Coverage Start Date Coverage End Date Medicare National [employer] [address] [place] [address] [id number] Ayesha Kitchen Self - patient is the insured 4 [employer] ([employer]) [address] [place] [address] [phone] [id number] Ayesha Kitchen Self - patient is [...]
--- OUTSIDE RECORDS SUMMARY | 2025-01-21 10:07 | XMS_ITS | Data Portability ---
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 Related Observation LastModified by Organization Detai ls LastModified Time None Recorded Concern Status LastModified by Organization Details LastModified Time None Recorded Advance Directives Directive None Recorded Payers Encounter Date Sequence Insurance Name Policy Number Policy Roth Covered Member ID Roth Member ID Guarantor Name 03/28/2022 2 [employer] [id number] Ayesha Kitchen [id number] Ayesha Kitchen 03/28/2022 1 MEDICARE B-[place]: [facility] Ayesha Kitchen [id number] Ayesha Kitchen 06/17/2022 2 [employer] [id number] Ayesha Kitchen [id number] Ayesha Kitchen 06/17/2022 1 MEDICARE B-[place]: [facility] Ayesha Kitchen [id number] 1 [id number] Ayesha Kitchen 12/09/2022 2 [employer] [id number] Ayesha Kitchen [id number] Ayesha Kitchen 12/09/2022 1 MEDICARE B-[place]: [facility] Ayesha Kitchen [id number] 1 [id number] Ayesha Kitchen 01/26/2024 2 [employer] [id number] Ayesha Kitchen [id number] Ayesha Kitchen 01/26/2024 1 MEDICARE B-[place]: [facility] Ayesha Kitchen [id number] 1 [id number] Ayesha Kitchen 01/15/2025 2 [employer] [id number] Ayesha Kitchen [id number] Ayesha Kitchen 01/15/2025 1 MEDICARE B-NE: [facility] Ayesha Kitchen [id number] 1 [id number] Ayesha Kitchen Notes Date Note Type Note Provider Name and Address Organization Details Recorded Time 03/28/20 22 text/htm l Pre-OpReported bypatient.Risk Factorsno cognitive impairment; no functional [...] were answered to the patient's satisfaction. Jeremías Upton DO [address] [place], [address], [facility] 03/28/2022 12:18:22 06/17/20 22 text/htm l c/o muscle strain patient has a msk strain after lifting and sleeping incorrectlyadvised using Icey-hot patches and starting MSK relaxer and meloxicam patient pain is on the right side, thoracic spine around T9, radiates downwardsmuscle is tight and painful to palpation MARIO RAMIREZ [address] [place], [address], [facility] 06/17/2022 11:59:09 12/10/19 23 text/htm l Medicare Annual Wellness VisitReported bypatient.Diet and Nutrition:high [...] her epigastric area superficial and irritating Jeremías Upton, DO [address] [place], [address], [facility] 12/09/2022 12:12:43 01/26/20 24 text/htm l here for rechk doing ok but is stressedbc her son has moved back instates her energy is down and wants some labno cp does have onging pain in her back when she needs a bm Jeremías Upton, DO [address] [place], [address], [facility] 01/26/2024 10:52:19 01/16/20 25 text/htm l Care Management - HyperlipidemiaReported bypatient.Control:usually well controlled; improving; at goal Complications:no coronary artery disease; no heart attack; no cardiovascular disease; no pancreatitis; no strokeMedicare Annual Wellness VisitReported bypatient.Diet and Nutrition:healthy diet Fracture Risk:no history of fractures; no recent explained fracture; no sudden unexplained fractures; no previous musculoskeletal injuries Physical Activity:exercises on a regular basis; recent increase in physical activity; good physical condition Depression Risk:never feels sad, empty, or tearful; no loss of interest in activities; no significant changes in weight; no sleep disturbances or insomnia; no agitation; no loss of energy; no feelings of worthlessness or guilt; no thoughts of suicide; no history of depression; no history of mood disorders Orientation:no disorientation to time; no disorientation to date; no disorientation to place Concentration and Memory:no decreased concentrating ability; no memory lapses or loss; does not forget words Speech/Motor difficulties:no speech difficulties; no difficulty expressing formulated concepts; no difficulty with fine manipulative tasks; no difficulty writing/copying; no slowed reaction time; does not knock things over when trying to pick them up Hearing:no loss of hearing Vision:no vision problems Activities of Daily Living:able to bathe with limited or no assistance; able to contol urination and bowels; able to dress with limited or no assistance; able to feed self with limited or no assistance; able to get out of chair or bed with limited or no assistance; able to groom with limited or no assistance; able to toilet with limited or no assistance Instrumental Activities of Daily Living:able to do house work with limited or no assistance; able to grocery shop with limited or no assistance; able to manage medications with limited or no assistance; able to manage money with limited or no assistance; able to prepare meals with limited or no assistance; able to use the phone with limited or no assistance Falls Risk Assessment:no frequent falls while walking; no fall in the past year; no fall since last visit; no dizziness/vertigo Home Safety:no unsafe grant hazzards; no unsafe stairs; no unsafe gas appliances; working smoke/CO detectors; wears protective head gear for biking/high velocity; use of seatbelts; practicing 'safer sex'; no vision or hearing loss while driving; no fire arms; has hand bars in the bathroom/shower; good lighting in the home doing ok overall not losing wgtstill has the side pain on occasionno cp no sob Jeremías Upton, DO [address] [facility], [place], [address], [facility] 01/15/2025 15:10:38 OBGyn Episode No OBEpisode recorded.
--- OUTSIDE RECORDS SUMMARY | 2025-01-21 10:07 | XMS_ITS | Data Portability ---
Author Organization [place] - [facility], Allergy Address [address] [address] Care Team Providers Care Office Receptionist Name Role Phone HETALCHRISTIANO SUNITHA Primary Care [...] Address Organization Details Recorded Time Abnormal gait 34840828 Active 2014 Other abnormali ties of gait and mobility; Note: Date Diagnosed : 08/13/2015 4:27 PM (R26.89) Not Available [facility] 4 02:23:03 Candidal otitis externa 62317175 Active 2021 Candidal otitis externa; Note: Date Diagnosed : 04/12/2022 2:51 PM (B37.84) Not Available [facility] 4 02:22:57 Itching of skin 676134393 Active 2021 Itch NOS; Note: Date Diagnosed : 04/12/2022 2:51 PM (L29.9) Not Available [facility] 4 02:23:12 Benign paroxysma l positiona l vertigo 544006254 Active 2021 Benign paroxysma l vertigo, unspecifi ed ear; Note: Date Diagnosed : 04/12/2022 2:51 PM (H81.10) Not Available [facility] 4 02:23:21 Dizziness and giddiness 071830292 Active 2014 Dizziness and giddiness ; Note: Date Diagnosed : 08/13/2015 4:22 PM (R42) Not Available [facility] 4 02:23:19 Disturban ce of salivary secretion 25261011 Active 2021 Xerostomi a; Note: Date Diagnosed : 04/28/2022 9:36 AM (K11.7) Not Available [facility] 4 02:23:15 Sensorine ural hearing loss of bilateral ears 448801001 Active 2014 Sensorine ural hearing loss, bilateral ; Note: Date Diagnosed : 08/13/2015 4:22 PM (H90.3) Not Available [facility] 4 02:23:20 Impacted cerumen in right ear 53584691405 88405 Active 2021 Impacted cerumen, right ear; Note: Date Diagnosed : 04/12/2022 2:40 PM (H61.21) Not Available [facility] 4 02:22:50 Disorder of smell 106831112 Active 2021 Other disturban rochelle of smell and taste; Note: Date Diagnosed : 04/28/2022 9:37 AM (R43.8) Not Available [facility] 4 02:23:26 Disorder of taste 496397465 Active 2021 Other disturban rochelle of smell and taste; Note: Date Diagnosed : 04/28/2022 9:37 AM (R43.8) Not Available [facility] 4 02:23:26 Superfici al mycosis 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 2021 Other specified superfici al mycoses; Note: Date Diagnosed : 04/12/2022 2:51 PM (B36.8) Not Available [facility] 4 02:22:59 Impacted cerumen of bilateral ears 75408074381 30019 Active 2023 VINH ROBERTS MD [address] [facility],[place] [address], [place], [address] , [facility] - [facility] 4 11:05:41 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 Procedures Surgical History Date Name Laterality Status Provider Name and Address Organization Details Recorded Time Comp Audio with Tymps - 46415 & 32229 completed Annie Bruce [place] - [facility] 08/06/2024 11:39:01 Cerumen removal with microscope bilateral completed VINH ROBERTS MD [address] [place] [address],[place] [address], [place], [address], [facility] - [facility] 08/06/2024 11:04:16 Imaging Results None recorded. Procedure Notes None recorded. Medical Equipment None Reported. Allergies Allergen ID Allergen Name Allergen Category Reaction Reaction Severity Criticality Documentation Date Start Date Code Code System Note Provider Name and Address Organization Details Recorded Time 50535 Product containin g 3-hydroxy -3-methyl glutaryl- coenzyme A reductase inhibitor (product) medicatio n other Not available Not available 01/23/2024 02182 009 SNOMED React ion: unkno wn, unspe cifie d;; Not Available [facility] 4 00:58:21 Medications Name Sig Start Date [...] mg tablet 08/06 completed Medicati on ID: [id number] B rand Name: pravasta tin Send Method: E-Prescr ibed Sub s Allowed: subs OK Medic ationGen ericName : pravasta tin Not Available Not Available Not Available clotrimaz ole-betam ethasone 1 %-0.05 % topical cream Apply 1 a small amount twice a day 08/06 completed Medicati on ID: [id number] D uration Value: 14 Prescri bed By Name: Sherrell Pérez nd Name: clotrianatoliy zole-bet amlatoniao tabby Send Method: E-Prescr ibed Sub s Allowed: [...] mg tablet 08/06 completed Medicati on ID: [id number] B rand Name: losartan Send Method: E-Prescr ibed Sub s Allowed: subs OK Medic ationGen ericName : losartan Not Available Not Available Not Available gabapenti n 100 mg capsule 04/12 completed Medicati on ID: [id number] D uration Value: 30 Brand Name: gabapent in Send Method: E-Prescr ibed Sub s Allowed: subs OK Medic ationGen ericName : gabapent in Not Available Not Available Not Available fluocinol one acetonide oil 0.01 % ear drops 08/06 completed Medicati on ID: [id number] B rand Name: fluocino lone acetonid e [...] SNOMED-CT Code Diagnosis ICD10 Code Diagnosis Note [id number] VINH ROBERTS MD [facility] [address] [place] [address] 08/06/2024 10:36:10 08/06/2024 12:30:13 Impacted cerumen of bilateral ears 5483671025 436015 H61.23 Severe cerumen impactions removed bilaterall y, with a subjective improvemen t in her hearing on the right. Candidal o titis externa 42847604 B37.84 Dermal mycosis 30974521 B36.9 The skin of the {{right le [...] Sensorineu ral hearing loss of bilateral ears 970699335 H90.3 Audiologic al evaluation results:Ri ght ear:{{Norm [...] copy of the audiogram, a list of [facility] hearing aid providers, and medical clearance for amplificat ion so the patient can pursue this at their convenien e}}. Patient is medically cleared for amplificat ion {{in the right ear in the left ear bilate rally*}}. [address] DORITA ALEMAN [facility] [address] [address] 08/06/2024 11:38:20 08/07/2024 07:11:22 Sensorineural hearing loss of bilateral ears 228726980 H90.3 Audiologic al evaluation results:Ri ght ear:{{Norm [...] Recorded Advance Directives Directive None Recorded Payers Insurance Date Sequence Insurance Name Policy Number Policy Roth Covered Member ID Roth Member ID Guarantor Name 08/07/2024 1 MEDICARE [place]: [facility] Ayesha Kitchen [id number] 1 Ayesha Kitchen 08/27/2024 2 [facility] [id number] Ayesha Kitchen [id number] Ayesha Kitchen Notes Date Note Type Note [...] ear and blockage sensation. She tried some mmgw-dge-jhotavd earwax drops without resolution. About 3 weeks [...] prescription for clotrimazole/betame thasone cream by her content production specialist, but she has only been using this intermittently. VINH ROBERTS MD [address] [place] [address], [address], [facility] - [facility] 08/06/2024 12:17:41 OBGyn Episode No OBEpisode recorded.
[2025-01-21 10:53] LABS: Estimated Average Glucose 160 mg/dL; Hemoglobin A1c % 7.2 % (<6.0); Total Hemoglobin (HGBA1C) 3467.5157 umol/L
[2025-01-21 11:28] LABS: Anion Gap 14 (12-20); Blood Urea Nitrogen 20 mg/dL (9-16); Calcium 9.2 mg/dL (8.4-10.2); Carbon Dioxide 28 mmol/L (22-29); Chloride 105 mmol/L (96-108); Estimated Glomerular Filt Rate 54; Glucose Random 159 mg/dL (60-115); Potassium 4.4 mmol/L (3.3-5.1); Sodium 143 mmol/L (135-145)
== END 2025-01-21 09:28 | disposition home or self-care (01) ==
LOC: HO.LAB 09:27
PROVIDERS: Nurse Practitioner Family; PCP Internal Medicine; Visit Provider Internal Medicine
DX: E66.01 Morbid (severe) obesity due to excess calories (principal); Z13.1 Encounter for screening for diabetes mellitus; I10 Essential (primary) hypertension
CPT/HCPCS: 36415; 80048; 83036

== ENCOUNTER → 2025-04-03 09:51 | Outpatient (REF) | payer MEDICARE, OTHER, SELFPAY ==
--- OUTSIDE RECORDS SUMMARY | 2025-04-03 10:31 | XMS_ITS | Patient Health Record ---
Author Organization [facility] Address [address] [facility] [place] [address] Care Team Providers Care Department Operations Manager Name Role Phone Won RANDALL, Jeremías Primary Care Provider Jeremi Alfred Unavailable [phone] Allergies Allergen (clinical drug ingredient) Drug/Non Drug [...] 500-125 MG as directed Orally every 12 hrs; Duration: 10 days Not-Taking Physical Therapy . . . 2-3x/week; Duration: 3-4 weeks Not-Taking Physical Therapy . . . 2-3x/week; Duration: 3-4 weeks 11/07/2016 Not-Taking metroNIDAZOLE face cream Activ e Physical Therapy . . . 2-3x/week; Duration: 3-4 weeks 09/21/2016 Not-Taking Fluocinolone Oint & Emollient ear drops Active Zetia PRN for 30 days Not-Taking Multivitamin Active Clotrimazole-Betametha sone 1-0.05 % APPLY TO AFFECTED AREA EVERY 12 HOURS FOR 14 DAYS External; Duration: 14 Not-Taking Losartan Potassium 25 MG 1 tablet Orally Once a day; Duration: 30 day(s) Active Amitriptyline HCl 10 MG TAKE 1 TABLET AT BEDTIME NEEDED INCREASE BY 1 PER WEEK TO MAXIMUM OF 4 TABLETS AT BEDTIME Oral; Duration: 30 Not-Taking Physical Therapy . . . 2-3x/week; Duration: 3-4 weeks at home Active Amitiza Not-Taking Pravastatin Sodium 10 MG 1 tablet Orally Once a day; Duration: 30 day(s) Active Fluocinolone Acetonide 0.01 % PLACE 4 DROPS IN EAR(S) 2 TIMES DAILY. Otic; Duration: 13 Not-Taking Keflex 500 MG 1 capsule Orally every 12 hrs; Duration: 10 day(s) 09/01/2017 Not-Taking Amoxicillin Not-Taki ng [...] primary osteoarthritis of the ankle and/or foot (162239768) Primary osteoarthriti s, left ankle and foot [...] X ray : Foot, right 3V 09/21/2016 [id number] 08/28/2017 93306- Debride <25 sq cm 09/13/2017 93617- Debride <25 sq cm 10/26/2017 00103 I&D ABSCESS- SIMPLE,SINGLE 018 53154, J0702- INJECT TENDON ORIGIN/INSER T 12/07/2016 Insurance Providers Payer Name Payer Address Payer Phone Subscriber Number Group Number Insured Name Patient Relationship to Insured Coverage Start Date Coverage End Date Medicare National [employer]t [employer] [address] [place] [address] [id number] Ayesha Kitchen Self - patient is the insured 4 [employer] ([employer]) [address] [place] [address] [id number] Ayesha Kitchen Self - patient is the insured Medical (General) History Medical History History ICD Code Cholesterol Cataracts Chicken pox Surgical History Surgery Date(Month/Year) hysterectomy 1998 anterior & posterior repair 2014 cataract surgery 2012 umbilical hernia repair 1997 endoscopy 10/12/2015 colonoscopy 10/12/2015 L ankle surgery 04/11/2021 Hospitalization History Reason Date(Month/Year) [facility]- reconstructive surgery, cystocele r belkis [facility]lock 10/[address] Vences 02/11/16
--- OUTSIDE RECORDS SUMMARY | 2025-04-03 10:31 | XMS_ITS | Encounter Summary ---
Author Organization [facility] Address [address] [facility] [address] [place] [address] Phone Care Team Providers Care Paper Sorter Name Role Phone Jeremías Upton DO Primary Care Provider [phone] Encounter Details Date Type Department Care Team (Late st Contact Info) Description 02/02/2023 Transcribe Orders [facility] [address] [place] [address] Jeremías Upton DO [address] [facility] [place] [address] [place] [address] Surgery Social History Tobacco Use Types Packs/Day Years Used Date Smoking Tobacco: Never Assessed Education Answer Date Recorded Are you interested in more education? Not on sharron e 01/07/2023 Are you concerned about learning? Not on file 01/07/2023 No 01/07/2023 No 01/07/2023 Comments Unknown Sex and Gender Information Value Date Recorded Sex Assigned at Not on file Legal Sex Unknown 07/07/2022 12:16 PM EDT Gender Identity Not on file Sexual Orientation Not on file documented as of this encounter Plan of Treatment Not on file documented as of this encounter Visit Diagnoses Not on filedocumented in this encounter Care Teams Paper Sorter Relationship Specialty Start Date End Date Jeremías Upton DO PCP - General Internal Medicine 12/30/22 documented as of this encounter Additional Source Comments The information contained in this document represents components of the legal health record. It is not the complete legal health record.[facility]
--- OUTSIDE RECORDS SUMMARY | 2025-04-03 10:32 | XMS_ITS | Data Portability ---
Author Organization [place] [facility], PAIN OFFICE Address [address] [facility] [place] [address] Care Team Providers Care Finish Grinder Name Role Phone KAMAR CANTRELL Referring Provider [phone] SUNITHA BOSS Primary Care Provider Assessment Encounter [...] therapist referral 2016 017 [facility], [address] [facility] [address], [place], [address], 16:00:53 Procedures None recorded. Surgeries None recorded. Imaging None recorded. Medication Orders None recorded. Patient TargetsNo targets recorded. Patient Instructions Encounter Date Encounter Id Patient Instructions Last Modified By Organization Details Last Modified Time 10/19/2016 [id number] She was advised against bed rest lasting longer than four days and to continue activities as tolerated. [email or web address] Not available 10/19/2016 13:51:01 01/12/2017 [id number] She was advised against bed rest lasting longer than four days and to continue activities as tolerated. [email or web address] Not available 01/13/2017 09:38:08 02/13/2017 [id number] She was advised against bed rest lasting longer than four days and to continue activities as tolerated. [email or web address] Not available 02/15/2017 11:00:29 03/06/2017 [id number] She was advised against bed rest lasting longer than four days and to continue activities as tolerated. [email or web address] Not available 03/06/2017 10:55:30 03/27/2017 [id number] She was advised against bed rest lasting longer than four days and to continue activities as tolerated. [email or web address] Not available 04/23/2017 12:38:50 Reason for Referral Referring Physician: Paresh chairez, Pain Management, Encounter Date: 10/19/2016 Problems Name Problem SNOMED Code Status Onset Date Resolution Date Notes Provider Name and Address Organization Details Recorded Time Lumbosacral radiculitis 14187828 Active Paresh lamar MD [address] [facility] , [address], [place], [address], [place] [facility] 5 08:25:23 Foot pain 36225259 Active Paresh [facility]ar MD [address] [facility] [address], [place], [address], [place] [facility] 5 08:25:23 Thoracic back pain 091170424 Active Paresh lamar MD [address] , [address], [place], [address], [place] [facility] 5 08:25:23 Problem Notes None recorded. Procedures Surgical History Date Name Laterality Status Provider Name and Address Organization Details Recorded Time 02/14/20 17 Trigger Point Injections under ultrasound guidance completed Paresh Dobbs MD [address] [facility] , [address], [place], [address], [place] [facility] 02/15/2017 [...] Name and Address Organization Details Recorded Time 00572 Product containin g 3-hydroxy -3-methyl glutaryl- coenzyme A reductase inhibitor (product) medicatio n nausea Not available Not available 07/29/2015 39303 009 SNOMED GI upset , light headn ess Alva longoria [facility] - [facility] 5 15:02:37 [...] in Arterial blood by Pulse oximetry Systolic And Diastolic Provider Name and Address Organization Details Last Updated DateTime 10/19/2016 78 /min 96 % 96 % 142/89 mm[Hg] [facility] 7 13:06:10 Date Recorded Heart rate Oxygen saturation Oxygen saturation in Arterial blood by Pulse oximetry Systolic And Diastolic Provider Name and Address Organization Details Last Updated DateTime 01/12/2017 83 /min 96 % 96 % 152/86 mm[Hg] [facility] 7 14:35:37 Date Recorded Heart rate Oxygen saturation Oxygen saturation in Arterial blood by Pulse oximetry Systolic And Diastolic Provider Name and Address Organization Details Last Updated DateTime 02/13/2017 78 /min 97 % 97 % 182/78 mm[Hg] Alva Nguyen [place] - [facility] 7 08:54:34 Date Recorded Heart rate Oxygen saturation Oxygen saturation in Arterial blood by Pulse oximetry Systolic And Diastolic Provider Name and Address Organization Details Last Updated DateTime 03/06/2017 78 /min 97 % 97 % 152/73 mm[Hg] Alva Nguyen [place] - [facility] 7 09:18:05 Date Recorded Heart rate Oxygen saturation Oxygen saturation in Arterial blood by Pulse oximetry Systolic And Diastolic Provider Name and Address Organization Details Last Updated DateTime 03/27/2017 71 /min 97 % 97 % 155/64 mm[Hg] Alva Nguyen [place] - [facility] 7 10:29:08 Social History Question Answer Notes LastModified by [employer] Details LastModified Time Tobacco Smoking Status Never [facility]oker Not Available [facility] 06/26/2020 03:16:12 Which Illicit Or Recreational Drugs Have You Used? No [id number] Information not available 06/26/2020 Education 2 Year College Information not available 07/29/2015 Live Alone Or With Others? Alone Information not available 07/29/2015 Marital Status Informatio n not available 07/29/2015 Sex: Unknown Functional Status Question Answer Note LastModified by [employer] Details LastModified Time What is your level of alcohol consumption? Occasional [id number] Information not available 06/26/2020 Are you currently employed? No [id number] Information not available 06/26/2020 Mental Status None [...] SNOMED-CT Code Diagnosis ICD10 Code Diagnosis Note [id number] Paresh Dobbs MD [facility] [address] [facility] [place] [address] 07/29/2015 14:17:19 08/10/2015 08:49:23 Lumbosacral radiculitis 12611031 M54.17 Foot pain 99954252 M79.6 71 M79.672 Thoracic back pain 81702 8004 M54.6 [id number] Paresh Dobbs MD [facility] [address] [facility] [place] [address] 08/10/2015 14:18:43 08/12/2015 13:59:29 Foot pain 56906798 M79.671 M79.672 Thoracic back pain 57712 8004 M54.6 Lumbosacra l radiculitis 14208742 M54.17 73242 Paresh Dobbs MD [facility] [address] [facility] [place] [address] 10/19/2016 13:00:25 10/19/2016 15:04:35 Lumbosacral radiculitis 97894792 M54.17 Foot pain 04286259 M79.6 71 M79.672 Thoracic back pain 48651 8004 M54.6 85844 Paresh Dobbs MD [facility] [address] [facility] [place] [address] 01/12/2017 13:51:44 01/13/2017 09:48:54 Lumbosacral radiculitis 90587937 M54.17 Foot pain 46623419 M79.6 71 M79.672 Thoracic back pain 17331 8004 M54.6 Knee pain 07707524 M25.5 61 M25.562 13184 Paresh Dobbs MD [facility] [address] [facility] [place] [address] 02/13/2017 08:45:27 02/15/2017 14:15:35 Lumbosacral radiculitis 85230696 M54.17 Foot pain 21888091 M79.6 71 M79.672 Thoracic back pain 27279 8004 M54.6 Knee pain 79785054 M25.5 61 M25.562 Muscle pain 70702370 M79 .1 [id number] Paresh Dobbs MD PAIN OFFICE [address] [place] [address] 03/06/2017 09:02:50 03/06/2017 15:29:04 Lumbosacral radiculitis 72489753 M54.17 Foot pain 45483528 M79.6 71 M79.672 Thoracic back pain 71661 8004 M54.6 Knee pain 68703676 M25.5 61 M25.562 Muscle pain 68134757 M79 .1 [id number] Paresh Dobbs MD PAIN OFFICE [address] [place] [address] 03/27/2017 10:18:03 04/23/2017 12:42:22 Lumbosacral radiculitis 02722219 M54.17 Foot pain 53288070 M79.6 71 M79.672 Thoracic back pain 42955 8004 M54.6 Knee pain 97865296 M25.5 61 M25.562 Muscle pain 70351667 M79 .1 Health Concerns Section Related Observation LastModified by Organization Detai ls LastModified Time None Recorded Concern Status LastModified by Organization Details LastModified Time None Recorded Advance Directives Directive None Recorded Payers Insurance Date Sequence Insurance Name Policy Number Policy Roth Covered Member ID Roth Member ID Guarantor Name 04/24/2017 2 [facility] [id number] Ayesha Kitchen [id number] Ayesha Imtiaz 03/25/2017 1 [place] [employer] Ayesha Kitchen [id number] Ayesha Kitchen Notes Date Note Type Note [...] some pain benefit. Paresh Dobbs MD [address] [facility] , [facility] [address], [place], [address], [facility] 10/24/2016 14:55:37 01/12/2017 text/html She [...] home as well. Paresh Dobbs MD [address] [facility] , [address] [place] [address], [place], [address], [facility] Pain [facility] 01/23/2017 08:55:29 02/13/2017 text/html She is here for a trial of trigger point injection in her left paraspinal muscle in her lower thoracic region under ultrasound guidance Paresh Dobbs MD [address] [facility] , [address], [place], [address], [facility] Pain Management 02/16/2017 16:43:00 03/06/2017 text/html She is here for a follow up after a trial of trigger point injection in her left paraspinal muscle in her lower thoracic region under ultrasound guidance. She reports some pain benefit for two weeks after the injection. She states physical therapy was helping her. She states she is very sensitive to medications. Paresh Dobbs MD [address] [facility] , [facility] [address], [place], [address], [facility] Pain Management 03/15/2017 08:33:33 03/27/2017 text/html She is here for a follow up. She is complaining of left sided chest wall pain. She is S/P fall and feels she has bruised her ribs. She reports some pain benefit with Lyrica 25 mg in the evening. She is reporting no side effects with Lyrica. Paresh Dobbs MD [address] [facility] , [address], [place], [address], [facility] 04/26/2017 15:33:55 OBGyn Episode No OBEpisode recorded.
== END ==
LOC: HO.SL 09:51
PROVIDERS: PCP Internal Medicine; Visit Provider Nurse Practitioner Family
DX: G47.33 Obstructive sleep apnea (adult) (pediatric) (principal); G47.10 Hypersomnia, unspecified; G47.36 Sleep related hypoventilation in conditions classified elsewhere
CPT/HCPCS: 95806

== ENCOUNTER → 2025-04-03 10:02 | Outpatient (BNV) | payer MEDICARE, OTHER, SELFPAY | PROVIDERS: PCP Internal Medicine; Visit Provider Internal Medicine | DX: G47.33 Obstructive sleep apnea (adult) (pediatric) (principal) | CPT/HCPCS: 95806 ==

== ENCOUNTER 2025-05-20 09:22 | Outpatient (AMB) | payer MEDICARE, OTHER, SELFPAY ==
[2025-05-20 09:46] VITALS: BP 140/62; PULSE 90; BMI 41.4
--- NOTE | 2025-05-20 09:46 | MHC.OFFVIS ---
Vital Signs 05/20/25 09:46 Height 5 ft 2 in Weight 226 lb 10.163 oz BMI 41.4 BP 140/62 H Blood Pressure Location Lt brachial Position Sitting Pulse 90 Pulse Source Pulse Oximeter Intake Visit Reasons: 6 mth f/up Language Path Required: No Allergies pregabalin Allergy (Unknown, Verified 05/20/25 09:48) Unknown Dstrlvk-IPQ-RrT Reductase Inhibitor (JCNULJS-ALH-MZP REDUCTASE INHIBITOR) Allergy (Unknown, Verified 05/20/25 09:48) ANXIETY, ABD PAIN From PROZAC Allergy (Unknown, Uncoded 05/20/25 09:48) HAD ALL THE SIDE EFFECTS Medication List - Last Reconciled 05/20/25 by Azeb Franco, ALINA-C amlodipine 5 mg PO DAILY aspirin (Adult Aspirin Regimen) 81 mg PO DAILY atorvastatin 40 mg PO BEDTIME chlorthalidone 25 mg PO DAILY losartan 100 mg PO DAILY metronidazole 0.75% 1 appl topical BID HPI HPI 6 mth f/up: Details: Ayesha is a 79-year-old female with past medical history of hypertension, hyperlipidemia, morbid obesity, chest discomfort with abnormal nuclear stress test who presents for follow-up. Today she reports that she has been doing generally well since her last visit in November. She missed the call from pulmonology to schedule a visit regarding her sleep apnea. She is still under high stress as her adult son is still living with her. He is on disability and not working. She has some shortness of breath with activity which is not new. She describes having vertigo, no falls. No recent chest pains at rest or during activity. No heart palpitations, presyncope, syncope, falls. Taking meds as directed. [facility] Medical History Dyslipidemia Hypertension Other abnormalities of gait and mobility Sensorineural hearing loss (SNHL), bilateral Xerostomia Surgical History Hx of colonoscopy H/O Achilles tendon repair H/O local excision of skin lesion Hx of hysterectomy History of surgery Hx of hernia repair Hx of cataract extraction Family History Sister Cancer Stroke Diabetes Father Heart disease Hypertension Stroke Brother Heart disease Mother Heart disease Stroke Social History Household Members: None Alcohol intake: current Alcohol intake frequency: holidays/special occasions only Patient Tobacco Use Status: Never used Tobacco Current occupational status: retired 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 [employer] Review of Systems Const All systems reviewed & are unremarkable except as noted in HPI and below Reports fatigue ENT Denies dizziness Card Denies chest pain, Denies chest pain at rest, Denies chest pain with activity, Denies rapid heart rate, Denies pedal edema, Denies edema, Denies leg edema, Denies lightheadedness, Denies palpitations, Denies dyspnea, Denies dyspnea on exertion and Denies orthopnea Resp Denies cough, Denies dyspnea and Denies dyspnea on exertion GI Denies hematochezia and Denies change in stool character Musc Denies abnormal gait, Denies limited range of motion, Denies muscle cramps, Denies muscle weakness, Denies numbness, Denies radiating pain into limb, Denies stiffness and Denies tingling Neuro Denies abnormal gait, Denies dizziness, Denies numbness and Denies tingling Endo Reports fatigue and Denies palpitations Physical Exam Vital Signs: Last Vital Signs Pulse 90 05/20/25 09:46 BP 140/62 H 05/20/25 09:46 BMI result Body Mass Index 41.4 Const Other: morbidly obese General: cooperative, healthy appearing, comfortable and no acute distress Orientation/consciousness: patient oriented x3 Neck Neck: Yes normal visual inspection and Yes no JVD Resp Effort & Inspection: normal respiratory effort Auscultation: clear to auscultation bilaterally, no rales, no rhonchi and no wheezes Cardio Rate: regular rate Rhythm: regular rhythm Heart sounds: S1 normal heart sound present, S2 normal heart sound present, no gallops, no murmurs and no rubs Neuro General: patient oriented x3 Extrem General: Yes normal to inspection, No no pedal edema and No calf tenderness Psych Appearance: grossly normal Mental Status: mental status grossly normal Speech and movement: Normal speech and movement present Assessment & Plan Assessment & Plan (1) Abnormal nuclear stress test: Code(s): R94.39 - Abnormal result of other cardiovascular function study Category: Medical Plan: Prior Reports of atypical sounding chest discomfort. Echocardiogram 07/01/2022 showed EF 60-65%, severe septal asymmetric hypertrophy. Nuclear stress test 09/29/2022 shows a fixed apical defect, infarct versus artifact. EKG from today shows sinus rhythm with first-degree AV block, left anterior fascicular block, no significant change from prior, rate 72. Currently no anginal symptoms. She has cardiac risk factors of hypertension, hyperlipidemia and morbid obesity. Cardiac risk factor modification reviewed with her. Discussed increasing her physical activity, weight loss, the need for good blood pressure control and cholesterol control. Continue aspirin and atorvastatin. Signs and symptoms of angina reviewed. Cardiology follow-up 6 mo, sooner if needed. (2) Essential hypertension: Code(s): I10 - Essential (primary) hypertension Category: Medical Plan: Blood pressure goal less than 130/80. Initially 140/62, recheck 136/76. Continue current losartan and chlorthalidone. Labs 01/21/2025 showed potassium 4.4, creatinine 0.99. Reviewed low-salt diet.. She is on chlorthalidone and losartan 50 mg daily reports compliance. Discussed low-salt diet. (3) Hyperlipidemia: Code(s): E78.5 - Hyperlipidemia, unspecified Category: Medical Plan: LDL goal less than 100, ideally less than 70 in patient with suspected CAD. Labs done 12/17/2024 showed LDL 72, normal LFT. Continue atorvastatin 40 mg daily. (4) AVITIA (dyspnea on exertion): Code(s): R06.09 - Other forms of dyspnea Category: Medical Plan: Unchanged in the last year. May be related to deconditioning and morbid obesity. (5) Obesity: Code(s): E66.9 - Obesity, unspecified Category: Medical Plan: Benefits a weight loss reviewed (6) Hypersomnia: Code(s): G47.10 - Hypersomnia, unspecified Category: Medical Plan: Reports of not sleeping well at night and hypersomnia during the day. Home sleep study 04/09/2025 shows fjfq-zx-hpegtama obstructive sleep apnea and she would benefit from CPAP. A pulmonology referral was entered and she believes she missed the call for the appointment. We gave her the number for pulmonology so she can set up consultation visit. Plan I discussed with the patient the management of her vertigo, emphasizing the importance of avoiding rapid movements and using support when necessary. We reviewed the sleep study results indicating mild to moderate obstructive sleep apnea and the recommendation for CPAP therapy. I advised the patient to follow up with pulmonology for further evaluation. We discussed the stability of her hypertension and the continuation of her current medication regimen. Signs and symptoms of angina discussed. Patient Instructions: - Avoid rapid movements to manage vertigo. - Follow up with pulmonology for sleep apnea evaluation. - Continue current blood pressure medications. - Call if any concern for anginal symptoms. Patient was informed and verbally consented to the use of an ambient scribe for clinic note documentation during this visit. Visit time spent on chart review, interview, assessment, orders, documentation. Coding Level of Care Code Est Pt Level 4 (03164) Complex EM visit Add On G2211 Diagnoses Abnormal nuclear stress test R94.39 Essential hypertension I10 Hyperlipidemia E78.5 AVITIA (dyspnea on exertion) R06.09 Obesity E66.9 Hypersomnia G47.10 Time Spent (min) 32
--- OUTSIDE RECORDS SUMMARY | 2025-05-20 10:47 | XMS_ITS | Clinical Summary ---
Author Organization [facility] Address [address] [place] [address] Phone Care Team Providers Care Personnel Clerks Supervisor Name Role Phone Jeremías Upton Primary Care Provider [phone] Social History Tobacco Use Types Packs/Day Years Used Date Smoking Tobacco: Never Assessed Education Answer Date Recorded Are you interested in more education? Not on sharron e 02/08/2023 Are you concerned about learning? Not on file 02/08/2023 No 02/08/2023 No 02/08/2023 Digital Access Answer Date Recorded No 02/08/2023 No 02/08/2023 Reliable internet access at home? Not on file 02/08/2023 Device with a working camera? Not on file Comments Unknown Sex and Gender Information Value Date Recorded Sex Assigned at Not on file Legal Sex Unknown 07/07/2022 12:16 PM EDT Gender Identity Not on file Sexual Orientation Not on file Plan of Treatment Not on file Medical Devices Not on file Insurance [facility] MEDICARE SUPPLEMENT MEDICARE PART A & B [facility] MEDICARE SUPPLEMENT MEDICARE PART A & B [facility] MEDICARE SUPPLEMENT MEDICARE PART A & B [employer] MED[employer]ARE SUPPLEMENT MEDICARE PART A & B [employer] MEDICARE SUPPLEMENT MEDICARE PART A & B [facility] MEDICARE SUPPLEMENT MEDICARE PART A & B Care Teams Personnel Clerks Supervisor Relationship Specialty Start Date End Date Jeremías Upton DO [email or web address] PCP - General Internal Medicine 12/30/22 Additional Source Comments The information contained in this document represents components of the legal health record. It is not the complete legal health record.[facility]
--- OUTSIDE RECORDS SUMMARY | 2025-05-20 10:47 | XMS_ITS | Patient Health Record ---
[facility] Address [address] [facility] [place] [address] Care Team Providers Care Nuclear Plant Operator Name Role Phone Won RANDALL, Jeremías Primary Care Provider Jeremi Alfred Unavailable [phone] Allergies Allergen (clinical drug ingredient) Drug/Non Drug [...] primary osteoarthritis of the ankle and/or foot ([id number]) Primary osteoarthriti s, left ankle and foot [...] X ray : Foot, right 3V 09/21/2016 99236-TXT 08/28/2017 88806- Debride <25 sq cm 09/13/2017 18506- Debride <25 sq cm 10/26/2017 14531 I&D ABSCESS- SIMPLE,SINGLE 018 45504, J0702- INJECT TENDON ORIGIN/INSER T 12/07/2016 Insurance Providers Payer Name Payer Address Payer Phone Subscriber Number Group Number Insured Name Patient Relationship to Insured Coverage Start Date Coverage End Date Medicare National [employer]t [employer] [address] [place] [address] [id number] Ayesha Kitchen Self - patient is the insured 4 [employer] ([employer]) [address] [place] [address] [id number] Ayesha Kitchen Self - patient is [...]
--- OUTSIDE RECORDS SUMMARY | 2025-05-20 10:47 | XMS_ITS | Encounter Summary ---
Author Organization [facility] Address [address] [place] [address] Phone Care Team Providers Care Campaign Management Specialist Name Role Phone Jeremías Upton DO Primary Care Provider [phone] Encounter Details Date Type Department Care Team (Latest Contact Info) Description 12/26/2023 Transcribe Orders Virtual Department [address] [place] [address] Ebony Love PA [address] [facility] [place] [address] Acute bronchitis, unspecified organism (Primary Dx) Social History Tobacco Use Types Packs/Day Years [...] on file documented as of this encounter Results * XR CHEST PA AND LATERAL 2 VIEWS (12/27/2023 11:15 AM EDT) Anatomical Region Laterality Modality Chest Computed Radiogr aphy 12/28/2023 9:44 AM EDT Impressions 12/28/2023 9:44 AM EDT No acute findings. Narrative 12/28/2023 9:44 AM EDT XR CHEST PA AND LATERAL 2 VIEWS Referring clinician's provided indication for this examination in Epic: Bronchitis; acute bronchitis COMPARISON: None FINDINGS: Lungs: Clear lungs. Pleura: No pleural effusion. No pneumothorax Heart/Mediastinum: Heart size normal. Bones/Soft Tissues: No acute finding Procedure Note Mason Del Rio MD, NESTOR - 12/28/2023 XR CHEST PA AND LATERAL 2 VIEWS Referring clinician's provided indication for this examination in Epic:Bronchitis; acute bronchitis COMPARISON: None FINDINGS: Lungs: Clear lungs. Pleura: No pleural effusion. No pneumothorax Heart/Mediastinum: Heart size normal. Bones/Soft Tissues: No acute finding IMPRESSION: No acute findings. Ebony Love PA IMG XR CHEST Final Resul t documented in this encounter Visit Diagnoses Diagnosis Acute bronchitis, unspecified organism- Primary Acute bronchitis, unspecified organism documented in this encounter Care Teams Campaign Management Specialist Relationship Specialty Start Date End Date Jeremías Upton DO [email or web address] PCP - General Internal Medicine 12/30/22 documented as of this encounter Additional Source Comments The information contained in this document represents components of the legal health record. It is not the complete legal health record.[facility]
--- OUTSIDE RECORDS SUMMARY | 2025-05-20 10:47 | XMS_ITS | Encounter Summary ---
Author Organization [facility] Address [address] [facility] [address] [place] [address] Phone Care Team Providers Care Weather Analyst Name Role Phone Jeremías Upton DO Primary Care Provider [phone] Encounter Details Date Type Department Care Team (Late st Contact Info) Description 02/02/2023 Transcribe Orders [facility] [address] [place] [address] Jeremías Upton DO [address] [facility] [place] [address] [place] [address] [email or web address] Social History Tobacco Use Types Packs/Day Years [...] on filedocumented in this encounter Care Teams Weather Analyst Relationship Specialty Start Date End Date Jeremías Upton DO [email or web address] PCP - General Internal Medicine 12/30/22 documented as of this encounter Additional Source Comments The information contained in this document represents components of the legal health record. It is not the complete legal health record.[facility]
== END 2025-05-20 10:20 | disposition home or self-care (01) ==
LOC: HO.HCS 09:23
PROVIDERS: PCP Internal Medicine; Visit Provider Nurse Practitioner Family
DX: R94.39 Abnormal result of other cardiovascular function study (principal); I10 Essential (primary) hypertension; E78.5 Hyperlipidemia, unspecified; R06.09 Other forms of dyspnea; E66.9 Obesity, unspecified; G47.10 Hypersomnia, unspecified
CPT/HCPCS: 99214; G2211

== ENCOUNTER → 2025-05-20 09:22 | Outpatient (BNVA) | payer MEDICARE, OTHER, SELFPAY | PROVIDERS: PCP Internal Medicine; Visit Provider Nurse Practitioner Family | DX: I10 Essential (primary) hypertension (principal); R94.39 Abnormal result of other cardiovascular function study; E78.5 Hyperlipidemia, unspecified; R06.09 Other forms of dyspnea; E66.9 Obesity, unspecified; Z68.41 Body mass index [BMI] 40.0-44.9, adult; G47.10 Hypersomnia, unspecified; Z79.82 Long term (current) use of aspirin | CPT/HCPCS: 99212 ==

== ENCOUNTER 2025-07-08 10:55 | Outpatient (AMB) | payer MEDICARE, OTHER, SELFPAY ==
[2025-07-08 11:01] VITALS: BP 140/82; PULSE 84; O2SAT 96; BMI 41.4
--- NOTE | 2025-07-08 11:01 | MHC.OFFVIS ---
Vital Signs 07/08/25 11:01 Height 5 ft 2 in Weight 226 lb 8 oz BMI 41.4 BP 140/82 H Blood Pressure Location Rt brachial Position Sitting Pulse 84 Pulse Source Pulse Oximeter Pulse Oximetry (%) 96 Oxygen Delivery Method Room Air Intake Visit Reasons: Sleep apnea Allergies pregabalin Allergy (Unknown, Verified 07/08/25 11:04) Unknown Xmwxysr-MMX-VrN Reductase Inhibitor (MPGJCZA-JRI-NMD REDUCTASE INHIBITOR) Allergy (Unknown, Verified 07/08/25 11:04) ANXIETY, ABD PAIN From PROZAC Allergy (Unknown, Uncoded 07/08/25 11:04) HAD ALL THE SIDE EFFECTS HPI HPI Sleep apnea: Details: Ayesha is a pleasant 80 year old female, never smoker, with underlying HTN and HLD. She was referred by cardiology for management of PERCY. 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 She was initially sent for testing due to daytime fatigue and nonrestorative sleep which she attributes to nocturnal urination as well as persistent left sided trunk pain. She was sent for in lab titration study however was unclear why this test was ordered, therefore she did not schedule. After discussion today she is agreeable to scheduling. Patient denies any respiratory symptoms at this time, other than dyspnea which she attributes to chronic pain. She states pain is constant, starting after a surgical procedure 11 years ago. She has undergone extensive evaluation as well as trialed therapies through pain management without success. She reports significant hyperalgesia as well as allodynia. Discussed referral to pain management however she would like to defer at this time. [facility] Medical History Dyslipidemia Hypertension Other abnormalities of gait and mobility Sensorineural hearing loss (SNHL), bilateral Xerostomia Surgical History Hx of colonoscopy H/O Achilles tendon repair H/O local excision of skin lesion Hx of hysterectomy History of surgery Hx of hernia repair Hx of cataract extraction Family History Sister Cancer Stroke Diabetes Father Heart disease Hypertension Stroke Brother Heart disease Mother Heart disease Stroke Social History (Reviewed 07/08/25 @ 11:04 by Junie Medel [facility]) Household Members: None Alcohol intake: current Alcohol intake frequency: holidays/special occasions only Patient Tobacco Use Status: Never used Tobacco Current occupational status: retired 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 Review of Systems Const Denies chills, Denies excessive sweating, Denies fever(s), Denies headache(s) and Denies night sweats Eyes Denies dry eyes, Denies irritation and Denies itchy eyes ENT Reports Normal hearing present, Denies headache(s), Denies nasal congestion, Denies nasal discharge, Denies post nasal drip and Denies sore throat Card Denies chest pain, Denies chest pain at rest, Denies chest pain with activity, Denies claudication, Denies leg edema, Denies dyspnea, Denies orthopnea and Denies paroxysmal nocturnal dyspnea Resp Denies chest congestion, Denies cough, Denies excessive phlegm production, Denies pain on inspiration, Denies pain with cough, Denies dyspnea, Denies stridor and Denies wheezing Musc Denies myalgias Neuro Reports Normal hearing present and Denies headache(s) Endo Denies excessive sweating Ernesto/Lymph Denies lymphadenopathy Aller/Immun Denies itchy eyes, Denies seasonal rhinorrhea and Denies wheezing Physical Exam Vital Signs: Last Vital Signs Pulse 84 07/08/25 11:01 BP 140/82 H 07/08/25 11:01 Pulse Ox 96 07/08/25 11:01 Oxygen Delivery Method Room Air 07/08/25 11:01 BMI result Body Mass Index 41.4 Const Other: visibly uncomfortable holding left trunk General: cooperative, healthy appearing, no acute distress, well developed and alert Nutritional Appearance: obese Orientation/consciousness: patient oriented x3 Limitations: no limitations HEENT Head: Yes normal to inspection, Yes normocephalic and Yes atraumatic Ears: hearing grossly normal bilaterally and external ears normal Eyes General: appearance normal, both eyes and all related structures Eyelids: Yes eyelids normal Sclerae: sclerae normal EOM: EOMs intact bilaterally Neck Neck: Yes normal visual inspection and Yes no lymphadenopathy Lymphatic: no lymphadenopathy noted Chest Chest palpation & inspection: normal inspection of the chest Resp Effort & Inspection: normal respiratory effort, able to speak in complete sentences, no audible wheezes, no cough, no stridor, not tachypneic, no tripod positioning and no use of accessory muscles Auscultation: clear to auscultation bilaterally Cardio Jugular venous distension: no JVD Rate: regular rate Rhythm: regular rhythm Skin Other: warm, dry General skin exam: no rashes or lesions noted Neuro General: patient oriented x3 Cranial nerves: Yes Normal hearing present Cognition (Neuro): normal cognition Gait exam (Neuro): Normal gait present Extrem General: Yes normal to inspection, Yes capillary refill normal, Yes no clubbing, cyanosis or edema and Yes no pedal edema Psych Appearance: grossly normal and well kempt Speech and movement: Normal speech and movement present and Clear speech present Affect: normal affect Attitude: cooperative Thought process: Normal thought process present Thought content: Normal thought content present Insight: Good insight present (Psych) Judgement: Good judgement present (Psych) Assessment & Plan Assessment & Plan (1) Obstructive sleep apnea: Code(s): G47.33 - Obstructive sleep apnea (adult) (pediatric) Category: Medical (2) Nocturnal hypoxemia: Code(s): G47.34 - Idiopathic sleep related nonobstructive alveolar hypoventilation Category: Medical Plan Patient presents after home sleep study revealed mild to moderate PERCY with nocturnal hypoxemia. Discussed further evaluation with in lab titration study to ensure optimal pressures with CPAP therapy which she was in agreement. Will enter order. Currently, she reports dyspnea with exertion however attributes it to pain which limits her inability to fully inspire otherwise denies respiratory symptoms and not interested in further investigating at this time. Discussed referral to [facility] pain management for chronic pain but would like to hold off until next visit to review. All questions were answered and patient is in agreement of plan. Will follow up to review results or sooner if needed, Orders: Orders RT PSG in-lab sleep titration Today G47.33 - Obstructive sleep apnea (adult) (pediatric), G47.34 - Idiopathic sleep related nonobstructive alveolar hypoventilation Coding Level of Care Code New Pt Level 4 (94832) Diagnoses Obstructive sleep apnea G47.33 Nocturnal hypoxemia G47.34
== END 2025-07-08 11:57 | disposition home or self-care (01) ==
LOC: HO.HPSW 10:56
PROVIDERS: PCP Internal Medicine; Visit Provider Nurse Practitioner Family
DX: G47.33 Obstructive sleep apnea (adult) (pediatric) (principal); G47.34 Idiopathic sleep related nonobstructive alveolar hypoventilation
CPT/HCPCS: 99204

== ENCOUNTER → 2025-07-08 10:55 | Outpatient (BNVA) | payer MEDICARE, OTHER, SELFPAY | PROVIDERS: PCP Internal Medicine; Visit Provider Nurse Practitioner Family | DX: G47.33 Obstructive sleep apnea (adult) (pediatric) (principal); G47.34 Idiopathic sleep related nonobstructive alveolar hypoventilation | CPT/HCPCS: 99202 ==